=== PATIENT | female | born 1980 ===

== ENCOUNTER 2022-10-08 13:16 | Outpatient (AMB) | payer OTHER, SELFPAY ==
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
[2022-10-08 13:20] VITALS: BP 148/76; PULSE 79; O2SAT 98; BMI 35.9
== END 2022-10-08 13:55 | disposition home or self-care (01) ==
PROVIDERS: Visit Provider Internal Medicine
DX: J45.40 Moderate persistent asthma, uncomplicated (principal); E66.01 Morbid (severe) obesity due to excess calories; Z68.35 Body mass index [BMI] 35.0-35.9, adult; Z59.00 Homelessness unspecified; Z23 Encounter for immunization; F43.10 Post-traumatic stress disorder, unspecified; F33.2 Major depressive disorder, recurrent severe without psychotic features; Z76.89 Persons encountering health services in other specified circumstances; R03.0 Elevated blood-pressure reading, without diagnosis of hypertension; R10.13 Epigastric pain; Z28.39 Other underimmunization status
CPT/HCPCS: 90471; 90715; 99205

== ENCOUNTER 2022-12-01 09:16 | Outpatient (AMB) | payer OTHER, SELFPAY ==
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
[2022-12-01 09:25] VITALS: BP 132/74; BMI 35.9
== END 2022-12-01 10:15 | disposition home or self-care (01) ==
PROVIDERS: PCP Internal Medicine; Visit Provider Advanced Practice Midwife
DX: Z01.419 Encounter for gynecological examination (general) (routine) without abnormal findings (principal); Z87.42 Personal history of other diseases of the female genital tract; Z11.3 Encounter for screening for infections with a predominantly sexual mode of transmission; N89.8 Other specified noninflammatory disorders of vagina
CPT/HCPCS: 99386

== ENCOUNTER 2022-12-01 09:16 | Outpatient (REF) | payer OTHER, SELFPAY ==
[2022-12-01 14:35] LABS: CT PCR NOT DETECTED (Not Detect.); NG PCR NOT DETECTED (Not Detect.)
[2022-12-02 13:47] LABS: BV Int Neg Control Negative (Negative); BV Int Pos Control Positive (Positive)
[2022-12-03 22:48] LABS: HPV mRNA E6/E7 rflx Not Detected (Not Detected)
== END 2022-12-01 09:17 | disposition home or self-care (01) ==
LOC: HO.LNP 09:16
PROVIDERS: PCP Internal Medicine; Visit Provider Advanced Practice Midwife
DX: Z01.419 Encounter for gynecological examination (general) (routine) without abnormal findings (principal); Z11.51 Encounter for screening for human papillomavirus (HPV)
CPT/HCPCS: 0353U; 87480; 87510; 87624; 87660; 88142; 99386

== ENCOUNTER 2023-05-09 09:29 | Outpatient (AMB) | payer MEDICAID, SELFPAY ==
[2023-05-09 10:57] VITALS: BP 140/88; PULSE 96; TEMP 37; O2SAT 96; BMI 36.9
--- NOTE | 2023-05-09 10:57 | AM.OFFWIN_ITS ---
Intake Vital Signs 05/09/23 10:57 Height 5 ft 10 in Weight 257 lb 4 oz BMI 36.9 BP 140/88 H Blood Pressure Location Rt brachial Position Sitting Pulse 96 Pulse Source Pulse Oximeter Temp 98.6 F Temp Source Oral Pulse Oximetry (%) 96 Oxygen Delivery Method Room Air Intake Visit Reasons: EP Pain chest/Rib Intake Note: Pt presents to the office today for chest pain and rib pain. Pt states this has been going on for about a week.She states she went to [facility] on tuesday and tuesday due to the pain. She states the doctor told her it could be pneumonia but wasnt sure. The doctor also said there was some type of obstruction in the lungs as well . Pt states she is in a lot of pain in her back. Patient Tobacco Use Status: Never used Tobacco Allergies keaflex Allergy (Severe, Uncoded 05/09/23 11:44) Unresponsive mandy Allergy (Mild, Uncoded 05/09/23 11:44) Anaphylaxis Medication List - Last Reconciled 05/09/23 by Alek Boyce MD albuterol sulfate 90 mcg/actuation (ProAir HFA) 1 inh inhalation QID PRN 30 days doxycycline hyclate 100 mg PO BID dupilumab (Dupixent) 300 mg subcut Q2W omeprazole 20 mg PO DAILY HPI EP Pain chest/Rib HPI Details 42-year-old [facility]. Patient was seen in the emergency room, [facility] on May 07 and May 08. She is complaining of worsening and progressive worsening of back pain and chest discomfort in the past week. Pain on taking a deep breath. This morning she is complaining of discomfort when she is swallowing. Pain mostly in the lower back. In the 2 ER visits she had in the last 2 days, an ultrasound of the abdomen, CTA of the chest, abdomen and pelvis was done. Blood work was unremarkable. Patient has an upcoming appointment with her primary care in 2 days. [facility] Social History Housing: Other Patient Tobacco Use Status: Never used Tobacco e-Cigarette/Vaping Use: Never Used service: No Current occupational status: employed Cognitive needs: No Hearing needs: No Vision needs: No Physical Exam Vital Signs: Last Vital Signs Temp 98.6 F 05/09/23 10:57 Pulse 96 05/09/23 10:57 BP 140/88 H 05/09/23 10:57 Pulse Ox 96 05/09/23 10:57 Oxygen Delivery Method Room Air 05/09/23 10:57 BMI result Body Mass Index 36.9 Const Other: Patient is concerned and in mild distress about her condition. General: cooperative and healthy appearing Nutritional Appearance: well nourished Orientation/consciousness: patient oriented x3 Limitations: no limitations HEENT Head: Yes normal to inspection Eyes General: appearance normal, both eyes and all related structures Neck Neck: Yes normal visual inspection Chest Chest palpation & inspection: normal palpation of entire chest wall Resp Effort & Inspection: normal respiratory effort Back/Spine/Pelvis Other: Back: No spinal tenderness. No paraspinal spasm. Neuro General: patient oriented x3 Assessment & Plan Assessment & Plan (1) Back pain: Code(s): M54.9 - Dorsalgia, unspecified Plan I reviewed the ultrasound of the abdomen, CTA of the abdomen pelvis that was provided to the patient at discharge from the emergency room. She is on antibiotics has the CTA of the chest showed trace pleural effusion. I encouraged her to take Mylanta in addition to the omeprazole for her symptoms of the throat. She has not started the oxycodone that was prescribed at the ER. 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 Cyclobenzaprine was added to the regimen. 20 minutes was spent in reviewing the ER document. Coding Level of Care Code Est Pt Level 4 (74907) Diagnoses Back pain M54.9
== END 2023-05-09 14:44 | disposition home or self-care (01) ==
PROVIDERS: PCP Internal Medicine; Visit Provider Internal Medicine
DX: M54.9 Dorsalgia, unspecified (principal)
CPT/HCPCS: 99214

== ENCOUNTER 2023-05-13 14:41 | Outpatient (AMB) | payer OTHER, SELFPAY ==
[2023-05-13 14:45] VITALS: BP 140/96; PULSE 69; O2SAT 98; BMI 36.8
--- NOTE | 2023-05-13 14:45 | A.OFFPC_ITS ---
Vital Signs 3 05/13/23 14:45 Height 5 ft 10 in Weight 256 lb 4 oz BMI 36.8 BP 140/96 H Blood Pressure Location Rt brachial Position Sitting Pulse 69 Pulse Source Pulse Oximeter Pulse Oximetry (%) 98 Oxygen Delivery Method Room Air Intake Visit Reasons: discharge follow up Allergies keaflex Allergy (Severe, Uncoded 05/13/23 14:47) Unresponsive mandy Allergy (Mild, Uncoded 05/13/23 14:47) Anaphylaxis Medication List - Last Reconciled 05/13/23 by Chasity Larson MD albuterol sulfate 90 mcg/actuation (ProAir HFA) 1 inh inhalation QID PRN 30 days cyclobenzaprine 10 mg PO BEDTIME doxycycline hyclate 100 mg PO BID dupilumab (Dupixent) 300 mg subcut Q2W fluticasone propion-salmeterol 500-50 mcg/dose (Advair Diskus) inhalation BID omeprazole 20 mg PO DAILY Tobacco use date assessed: 05/13/23 Dental Screening Dental Screen Date: 05/13/23 HPI discharge follow up 2 HPI0 Details Patient is a 42-year-old female who was last seen by me end of last year for asthma and new patient visit, and did not come in for follow-up after that. Came in today for hospital discharge follow-up from [facility] Patient presented to emergency room with a chief complaint of right upper quadrant pain CTA done showed no aortic dissection mesenteric vessels are patent without evidence of end-organ hypoperfusion Ground-glass opacities in the lung bases may represent atelectasis or infectious etiology Labs were within normal limits Day before that patient went to [facility] with similar complaints and CT scan of abdomen was done I did not had those notes but patient had them CT scan report reviewed It shows dilatation of common bile duct to 10 mm and then tapering off to normal diameter Patient says that she tried to eat a little bit of pasta this morning and the pain got really worse At this time she is only tolerating clear liquids She is to continue with the liquids chicken broth is okay jello is okay I have placed referral to Gastroenterology for patient to be seen urgently For her lungs we will repeat chest x-ray in couple of weeks At this time patient does not have any fever or cough PFSH Social History Housing: Other Patient Tobacco Use Status: Never used Tobacco e-Cigarette/Vaping Use: Never Used service: No Current occupational status: employed Cognitive needs: No Hearing needs: No Vision needs: No Questionnaire Thrive Questionnaire Date Thrive assessed: 10/08/22 VALERY-7 AMB Questionnaire VALERY-7 Date VALERY - 7 assessed: 10/08/22 Source: Developed by Drs. Lyle Gant, Agnieszka Tong, Cristian Pettit and colleagues, with an educational romeo from [employer]. Review of Systems Const Denies chills and Denies fever(s) ENT Denies epistaxis and Denies nasal discharge Card Denies chest pain Resp Denies chest congestion, Denies cough and Denies hemoptysis GI Denies diarrhea and Denies nausea Skin/Breast Denies rash Neuro Reports no additional complaints Psych Reports no additional complaints Endo Reports no additional complaints Physical exam (Primary Care) Vital Signs: Last Vital Signs Pulse 69 05/13/23 14:45 BP 140/96 H 05/13/23 14:45 Pulse Ox 98 05/13/23 14:45 Oxygen Delivery Method Room Air 05/13/23 14:45 BMI result Body Mass Index 36.8 Tobacco/Smoking Status: Tobacco use Status Tobacco use date assessed 05/13/23 05/13/23 14:54 Patient Tobacco Use Status Never used Tobacco 05/13/23 14:54 e-Cigarette/Vaping Use Never Used 05/13/23 14:54 Thrive Assessment: Date of Thrive Assessment Date Thrive assessed 10/08/22 05/13/23 14:54 Const General: cooperative, comfortable and no acute distress Orientation/consciousness: patient oriented x3 HENMT Head: Yes normocephalic Eyes General: appearance normal, both eyes and all related structures Neck Neck: Yes supple Resp Effort & Inspection: normal respiratory effort, no cough and no stridor Cardio Rhythm: regular rhythm Heart sounds: S1 normal heart sound present and S2 normal heart sound present GI Abdomen image: 2 1. Pain with slight palpation Skin General skin exam: turgor normal Neuro General: patient oriented x3, tone normal and moves all extremities Extrem Right lower extremity: no edema Left lower extremity: no edema Assessment and Plan Assessment & Plan (1) Hospital discharge follow-up: Code(s): Z09 - Encounter for follow-up examination after completed treatment for conditions other than malignant neoplasm (2) Abnormal gall bladder diagnostic imaging: Code(s): R93.2 - Abnormal findings on diagnostic imaging of liver and biliary tract (3) Right upper quadrant pain: Code(s): R10.11 - Right upper quadrant pain (4) Opacity of lung on imaging study: Code(s): R91.8 - Other nonspecific abnormal finding of lung field Plan Patient is a 42-year-old female who was last seen by me end of last year for asthma and new patient visit, and did not come in for follow-up after that. Came in today for hospital discharge follow-up from [facility] Patient presented to emergency room with a chief complaint of right upper quadrant pain CTA done showed no aortic dissection mesenteric vessels are patent without evidence of end-organ hypoperfusion Ground-glass opacities in the lung bases may represent atelectasis or infectious etiology Labs were within normal limits Day before that patient went to [facility] with similar complaints and CT scan of abdomen was done I did not had those notes but patient had them CT scan report reviewed It shows dilatation of common bile duct to 10 mm and then tapering off to normal diameter Patient says that she tried to eat a little bit of pasta this morning and the pain got really worse At this time she is only tolerating clear liquids She is to continue with the liquids chicken broth is okay jello is okay I have placed referral to Gastroenterology for patient to be seen urgently For her lungs we will repeat chest x-ray in couple of weeks At this time patient does not have any fever or cough Orders: Orders 2 XR chest 2V Today R91.8 - Other nonspecific abnormal finding of lung field Referrals 2 Gastroenterology Referral R10.11 - Right upper quadrant pain, R93.2 - Abnormal findings on diagnostic imaging of liver and biliary tract Coding Level of Care Code Est Pt Level 4 (86233) Diagnoses Hospital discharge follow-up Z09 Abnormal gall bladder diagnostic imaging R93.2 Right upper quadrant pain R10.11 Opacity of lung on imaging study R91.8
== END 2023-05-13 15:25 | disposition home or self-care (01) ==
PROVIDERS: PCP Internal Medicine; Visit Provider Internal Medicine
DX: R93.2 Abnormal findings on diagnostic imaging of liver and biliary tract (principal); Z09 Encounter for follow-up examination after completed treatment for conditions other than malignant neoplasm; R10.11 Right upper quadrant pain; R91.8 Other nonspecific abnormal finding of lung field
CPT/HCPCS: 99214

== ENCOUNTER 2023-06-06 10:33 | Outpatient (REF) | payer OTHER, SELFPAY ==
[2023-06-06 11:47] LABS: MANUAL DIFF FLAG NO
[2023-06-06 11:58] LABS: Basophils Percent Auto 0.5 % (0-2); Eosinophils Absolute Auto 0.6 X10*3/uL (0.0-0.4); Eosinophils Percent Auto 6.9 % (0-4); Hematocrit 41.2 % (37.0-47.0); Hemoglobin 13.4 g/dl (12.0-16.0); Imm Gran Abs Auto 0.02 X10*3/uL (0.00-0.03); Imm Gran Pct Auto 0.3 % (0.0-0.4); Lymphocytes Absolute Auto 2.6 X10*3/uL (1.2-4.9); Lymphocytes Percent Auto 32.4 % (20-40); Mean Corpuscular HGB Conc 32.5 g/dl (31.0-35.0); Mean Corpuscular Hemoglobin 28.1 pg (27.0-33.0); Mean Corpuscular Volume 86.4 fL (80.0-98.0); Mean Platelet Volume 10.4 fL (9.4-12.3); Monocytes Absolute Auto 0.7 X10*3/uL (0.1-1.2); Monocytes Percent Auto 8.6 % (2-11); Neutrophils Absolute Auto 4.1 x10*3/uL (2.0-8.3); Neutrophils Percent Auto 51.3 % (45-73); Platelet Count 242 X10*3/uL (160-400); Red Blood Count 4.77 X10*6/uL (4.20-5.50); Red Cell Distribution Width 14.6 % (11.0-16.0); White Blood Count 7.9 X10*3/uL (4.8-10.8)
[2023-06-06 12:38] LABS: Alanine Aminotransferase 14 U/L (0-31); Albumin Level 4.2 g/dL (3.5-5.0); Alkaline Phosphatase 75 U/L (39-117); Anion Gap 12 (12-20); Aspartate Amino Transferase 15 U/L (5-31); Bilirubin Total 0.4 mg/dL (0.0-1.0); Blood Urea Nitrogen 9 mg/dL (9-16); Calcium 9.4 mg/dL (8.4-10.2); Carbon Dioxide 28 mmol/L (22-29); Chloride 103 mmol/L (96-108); Estimated Glomerular Filt Rate > 60; Glucose Random 99 mg/dL (60-115); Potassium 4.1 mmol/L (3.3-5.1); Sodium 139 mmol/L (135-145); Total Protein 8.1 g/dL (6.5-8.0)
== END 2023-06-06 10:34 | disposition home or self-care (01) ==
LOC: HO.LAB 10:33
PROVIDERS: PCP Internal Medicine; Visit Provider Physician Assistant
DX: Z09 Encounter for follow-up examination after completed treatment for conditions other than malignant neoplasm (principal); R10.11 Right upper quadrant pain; R93.2 Abnormal findings on diagnostic imaging of liver and biliary tract; K83.8 Other specified diseases of biliary tract
CPT/HCPCS: 36415; 80053; 85025; 99202

== ENCOUNTER 2023-06-06 10:34 | Outpatient (AMB) | payer OTHER, SELFPAY ==
--- NOTE | 2023-06-06 10:36 | MHC.OFFVIS ---
Vital Signs 06/06/23 10:40 Height 5 ft 10 in Weight 250 lb BMI 35.9 BP 132/74 Blood Pressure Location Lt brachial Position Sitting Pulse 72 Intake Visit Reasons: Ab findings of liver and biliary tract Intake Note: New consult for abnormal finding of liver and billary tract Patient cc: abdominal discomfort and bloating, some swallowing problems, constipation on and off, and burping a lot. 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 Accompanied by: Self / Same As Patient Allergies keaflex Allergy (Severe, Uncoded 05/13/23 14:47) Unresponsive mandy Allergy (Mild, Uncoded 05/13/23 14:47) Anaphylaxis Medication List - Last Reconciled 06/06/23 by Cori Staton PA-C albuterol sulfate 90 mcg/actuation (ProAir HFA) 1 inh inhalation QID PRN 30 days cyclobenzaprine 10 mg PO BEDTIME doxycycline hyclate 100 mg PO BID dupilumab (Dupixent) 300 mg subcut Q2W fluticasone propion-salmeterol 500-50 mcg/dose (Advair Diskus) inhalation BID omeprazole 20 mg PO DAILY HPI Comments Details: A 42 y/o female severe asthma- dupexiant with good response-referred after [facility] ED for RUQ pain-txd for pneumonia with antibx- RUQ discomfort-intermittent over the past couple years- she was given pills- she was seen previously at the ED- no dx Sent to GI urgently- she is unclear why Appetite fluctuates- unable to ID anything specific-omeprazole 20 mg- unclear if effective-has made dietary change- She has globus- is anxious- No nausea/ vomit- hematemesis, hematochezia fever or chills [facility] Social History (Updated 06/06/23 @ 11:19 by Cori Staton PA-C) Household Members Other:: 2 sons Housing: Other Patient Tobacco Use Status: Never used Tobacco e-Cigarette/Vaping Use: Never Used service: No Current occupational status: employed Cognitive needs: No Hearing needs: No Vision needs: No Review of Systems Const All systems reviewed & are unremarkable except as noted in HPI and below Card Denies chest pain and Denies dyspnea Resp Denies dyspnea GI Reports abdominal pain and Reports heartburn Physical Exam Vital Signs: Last Vital Signs Pulse 72 06/06/23 10:40 BP 132/74 06/06/23 10:40 BMI result Body Mass Index 35.9 Const General: cooperative, healthy appearing, comfortable and no acute distress Orientation/consciousness: patient oriented x3 Limitations: no limitations Eyes Sclerae: sclerae normal Resp Effort & Inspection: normal respiratory effort and able to speak in complete sentences Auscultation: clear to auscultation bilaterally, no rales, no rhonchi and no wheezes Cardio Rate: regular rate Rhythm: abnormal rhythm GI Palpation (GI): Soft to palpation and nontender Auscultation: normal bowel sounds Neuro General: patient oriented x3 Extrem General: Yes full ROM Psych Appearance: grossly normal and well kempt Mental Status: mental status grossly normal Speech and movement: Normal speech and movement present and Clear speech present Affect: normal affect Attitude: cooperative Thought process: Normal thought process present Thought content: Normal thought content present Insight: Good insight present (Psych) Judgement: Good judgement present (Psych) Results Reviewed Results Reviewed: Normal liver enzymes-[facility] Assessment & Plan Assessment & Plan (1) Hospital discharge follow-up: Comment: 2, ED visits, right upper quadrant-CT shows CBD 10 mm-normal liver enzymes-needs further Code(s): Z09 - Encounter for follow-up examination after completed treatment for conditions other than malignant neoplasm Category: Medical Plan: MRCP (2) Dilated cbd, acquired: Comment: MRCP labs Code(s): K83.8 - Other specified diseases of biliary tract Category: Medical (3) Right upper quadrant pain: Comment: intermittent- discomfort x 2 years Code(s): R10.11 - Right upper quadrant pain Category: Medical (4) Abnormal gall bladder diagnostic imaging: Comment: No stones, CBD 10 mm Code(s): R93.2 - Abnormal findings on diagnostic imaging of liver and biliary tract Category: Medical Plan Patient to check records for MRI question However will place order for MRCP- if neg get HIDA labs Orders: Orders MR MRCP 06/06/23 K83.8 - Other specified diseases of biliary tract, R10.11 - Right upper quadrant pain, R93.2 - Abnormal findings on diagnostic imaging of liver and biliary tract, Z09 - Encounter for follow-up examination after completed treatment for conditions other than malignant neoplasm Comprehensive Met. Panel 06/06/23 K83.8 - Other specified diseases of biliary tract, R10.11 - Right upper quadrant pain Complete Blood Count Auto Diff 06/06/23 K83.8 - Other specified diseases of biliary tract, R10.11 - Right upper quadrant pain, R93.2 - Abnormal findings on diagnostic imaging of liver and biliary tract Patient Instructions: MRCP if neg get HIDA labs Patient to check records for MRI question questions However will place order for MRCP- if neg get HIDA labs She will continue to monitor her sx Continue PPI Encouraged to call with any questions or concerns. Coding Level of Care Code New Pt Level 4 (16716) Diagnoses Hospital discharge follow-up Z09 Dilated cbd, acquired K83.8 Right upper quadrant pain R10.11 Abnormal gall bladder diagnostic imaging R93.2 Time Spent (min) 30 Comment disc-MD/prev-GI
[2023-06-06 10:40] VITALS: BP 132/74; PULSE 72; BMI 35.9
== END 2023-06-06 12:15 | disposition home or self-care (01) ==
PROVIDERS: PCP Internal Medicine; Visit Provider Physician Assistant
DX: Z09 Encounter for follow-up examination after completed treatment for conditions other than malignant neoplasm (principal); K83.8 Other specified diseases of biliary tract; R10.11 Right upper quadrant pain; R93.2 Abnormal findings on diagnostic imaging of liver and biliary tract
CPT/HCPCS: 99204

== ENCOUNTER 2023-06-22 13:06 | Outpatient (AMB) | payer OTHER, SELFPAY ==
[2023-06-22 13:11] VITALS: BP 150/88; PULSE 91; O2SAT 98; BMI 37.3
--- NOTE | 2023-06-22 13:11 | MHC.PC.OV ---
Vital Signs 06/22/23 13:11 Height 5 ft 10 in Weight 260 lb 4 oz BMI 37.3 BP 150/88 H Blood Pressure Location Lt brachial Position Sitting Pulse 91 Pulse Source Pulse Oximeter Pulse Oximetry (%) 98 Oxygen Delivery Method Room Air Intake Visit Reasons: Discuss weight loss ~ Allergies keaflex Allergy (Severe, Uncoded 05/13/23 14:47) Unresponsive mandy Allergy (Mild, Uncoded 05/13/23 14:47) Anaphylaxis Medication List - Last Reconciled 06/22/23 by Chasity Larson MD albuterol sulfate 90 mcg/actuation (ProAir HFA) 1 inh inhalation QID PRN 30 days cyclobenzaprine 10 mg PO BEDTIME dupilumab (Dupixent) 300 mg subcut Q2W fluticasone propion-salmeterol 500-50 mcg/dose (Advair Diskus) inhalation BID omeprazole 20 mg PO DAILY Tobacco use date assessed: 06/22/23 Dental Screening Dental Screen Date: 06/22/23 Did you have a dental visit in the last 12 months?: No Did you have a dental problem in the last 6 months where you did not have access to dental care?: No Was dental information given to patient?: No HPI Discuss weight loss ~ HPI Details Patient is a 43-year-old female came in today to talk about her weight Patient says that she has been working out and trying to watch what she is eating but still has no luck losing weight Patient was last seen secondary to right upper quadrant pain, she is under care of Gastroenterology and have MRI appointment coming up She says that she does not want to take any medication she is more interested in surgical treatment Her BMI is 37.3 patient is obese I have placed a referral for her to be evaluated by Bariatric surgery [facility] Social History Household Members Other:: 2 sons Housing: Other Patient Tobacco Use Status: Never used Tobacco e-Cigarette/Vaping Use: Never Used service: No Current occupational status: employed Cognitive needs: No Hearing needs: No Vision needs: No Questionnaire Thrive Questionnaire Date Thrive assessed: 10/08/22 AUDIT C Alcohol Use Questionnaire (AUDIT-C) 1. How often do you have a drink containing alcohol?: Never 3. How often do you have six or more drinks on one occasion?: Never Total Score: 0 Score Reviewed/Action Taken: Yes VALERY-7 AMB Questionnaire VALERY-7 Date VALERY - 7 assessed: 10/08/22 Source: Developed by Drs. Lyle Gant, Agnieszka Tong, Cristian Pettit and colleagues, with an educational romeo from [employer]. Review of Systems Const All systems reviewed & are unremarkable except as noted in HPI and below Physical exam (Primary Care) Vital Signs: Last Vital Signs Pulse 91 06/22/23 13:11 BP 150/88 H 06/22/23 13:11 Pulse Ox 98 06/22/23 13:11 Oxygen Delivery Method Room Air 06/22/23 13:11 BMI result Body Mass Index 37.3 Tobacco/Smoking Status: Tobacco use Status Tobacco use date assessed 06/22/23 06/22/23 13:15 Patient Tobacco Use Status Never used Tobacco 06/22/23 13:15 e-Cigarette/Vaping Use Never Used 06/22/23 13:15 Thrive Assessment: Date of Thrive Assessment Date Thrive assessed 10/08/22 06/22/23 13:15 Const General: no acute distress Orientation/consciousness: patient oriented x3 Eyes General: appearance normal, both eyes and all related structures Resp Effort & Inspection: normal respiratory effort and able to speak in complete sentences Neuro General: patient oriented x3 Psych Mental Status: mental status grossly normal Assessment and Plan Assessment & Plan (1) Obesity due to excess calories: Code(s): E66.09 - Other obesity due to excess calories Qualifiers: Body mass index: BMI 35.0-35.9 Obesity classification: adult class 2 (BMI 35 - 39.9) Serious obesity comorbidity presence: with serious comorbidity Qualified Code(s): E66.01 - Morbid (severe) obesity due to excess calories; Z68.35 - Body mass index [BMI] 35.0-35.9, adult Plan Patient is a 43-year-old female came in today to talk about her weight Patient says that she has been working out and trying to watch what she is eating but still has no luck losing weight Patient was last seen secondary to right upper quadrant pain, she is under care of Gastroenterology and have MRI appointment coming up She says that she does not want to take any medication she is more interested in surgical treatment Her BMI is 37.3 patient is obese I have placed a referral for her to be evaluated by Bariatric surgery [facility] Orders: Referrals Bariatric Surgery Referral E66.01 - Morbid (severe) obesity due to excess calories, Z68.35 - Body mass index [BMI] 35.0-35.9, adult Coding Level of Care Code Est Pt Level 3 (72331) Diagnoses Class 2 severe obesity due to excess calories with serious comorbidity and body mass index (BMI) of 35.0 to 35.9 in adult E66.01; Z68.35 Body mass index: BMI 35.0-35.9 Obesity classification: adult class 2 (BMI 35 - 39.9) Serious obesity comorbidity presence: with serious comorbidity
== END 2023-06-22 14:14 | disposition home or self-care (01) ==
LOC: HO.HMGC 13:06
PROVIDERS: PCP Internal Medicine; Visit Provider Internal Medicine
DX: E66.01 Morbid (severe) obesity due to excess calories (principal); Z68.35 Body mass index [BMI] 35.0-35.9, adult
CPT/HCPCS: 99213

== ENCOUNTER → 2023-06-28 09:11 | Outpatient (BNVA) | payer OTHER, SELFPAY | PROVIDERS: PCP Internal Medicine; Visit Provider Physician Assistant Surgical ==

== ENCOUNTER 2023-07-27 12:42 | Outpatient (AMB) | payer OTHER, SELFPAY ==
--- NOTE | 2023-07-27 12:47 | MHC.PC.OV ---
Vital Signs 07/27/23 12:49 Height 5 ft 9 in Weight 260 lb 2 oz BMI 38.4 BP 152/90 H Blood Pressure Location Lt brachial Position Sitting Pulse 97 Pulse Source Pulse Oximeter Pulse Oximetry (%) 98 Oxygen Delivery Method Room Air Intake Visit Reasons: Annual PE Allergies keaflex Allergy (Severe, Uncoded 06/28/23 11:13) Unresponsive mandy Allergy (Mild, Uncoded 06/28/23 11:13) Anaphylaxis Medication List - Last Reconciled 07/27/23 by Chasity Larson MD albuterol sulfate 90 mcg/actuation (ProAir HFA) 1 inh inhalation QID PRN 30 days cyclobenzaprine 10 mg PO BEDTIME dupilumab (Dupixent) 300 mg subcut Q2W fluticasone propion-salmeterol 500-50 mcg/dose (Advair Diskus) inhalation BID magnesium 200 mg PO DAILY montelukast (Singulair) 10 mg PO DAILY omeprazole 20 mg PO DAILY zafirlukast 20 mg PO BID Tobacco use date assessed: 07/27/23 Dental Screening Dental Screen Date: 07/27/23 Did you have a dental visit in the last 12 months?: No Did you have a dental problem in the last 6 months where you did not have access to dental care?: No Was dental information given to patient?: Patient has dentist HPI Annual PE HPI Details Patient is a 42-year-old female came in today for physical examination Her blood pressure is elevated again It is higher than before On June 27 it was 140/84 and today it is 152/90 I am starting her on atenolol 25 mg as her heart rate is also elevated Patient suffers from severe asthma and currently seeing allergy airways operations specialist and is taking Dupixent through them in [place] Her last dose was 1 week ago. OBGYN visit was December of last year She is also due for mammogram order placed Labs were done May of this year reviewed again. There is some confusion going on with bariatric surgery scheduling coordinator Patient was evaluated at [facility] before, and then she got another appointment in [facility] Patient says that the [facility] appointment provider told her that they only do medications there. I have told her to call the [facility] bariatric center for a follow-up appointment If there is a problem then let me know. Patient is not interested in medications she would like to have bariatric surgery. Follow-up 3 weeks for blood pressure. [facility] Social History Household Members Other:: 2 sons Housing: Other Patient Tobacco Use Status: Never used Tobacco e-Cigarette/Vaping Use: Never Used service: No Current occupational status: employed Cognitive needs: No Hearing needs: No Vision needs: No Questionnaire Thrive Questionnaire Date Thrive assessed: 10/08/22 AUDIT C Alcohol Use Questionnaire (AUDIT-C) 1. How often do you have a drink containing alcohol?: Never 3. How often do you have six or more drinks on one occasion?: Never Total Score: 0 Score Reviewed/Action Taken: Yes VALERY-7 AMB Questionnaire VALERY-7 Date VALERY - 7 assessed: 10/08/22 Source: Developed by Drs. Lyle Gant, Agnieszka Tong, Cristian Pettit and colleagues, with an educational romeo from [employer]. Review of Systems Const Denies chills, Denies fever(s) and Denies headache(s) Eyes Denies blurry vision ENT Denies headache(s), Denies nasal discharge, Denies nasal obstruction, Denies odynophagia and Denies sinus pain Card Denies chest pain at rest and Denies chest pain with activity Resp Denies cough and Denies hemoptysis GI Denies diarrhea, Denies odynophagia, Denies vomiting and Denies hematemesis Reports as per HPI Musc Denies abnormal gait Skin/Breast Reports as per HPI Neuro Denies Neuro-related abnormal movements, Denies Abnormal speech present, Denies abnormal gait, Denies headache(s) and Denies Sensory deficit (Neuro) Psych Denies mood swings and Denies paranoia Endo Reports as per HPI Yobani/Lymph Reports as per HPI Aller/Immun Reports as per HPI Physical exam (Primary Care) Vital Signs: Last Vital Signs Pulse 97 07/27/23 12:49 BP 152/90 H 07/27/23 12:49 Pulse Ox 98 07/27/23 12:49 Oxygen Delivery Method Room Air 07/27/23 12:49 BMI result Body Mass Index 38.4 Tobacco/Smoking Status: Tobacco use Status Tobacco use date assessed 07/27/23 07/27/23 12:52 Patient Tobacco Use Status Never used Tobacco 07/27/23 12:47 e-Cigarette/Vaping Use Never Used 07/27/23 12:47 Thrive Assessment: Date of Thrive Assessment Date Thrive assessed 10/08/22 07/27/23 12:47 Const General: cooperative, comfortable and no acute distress Orientation/consciousness: patient oriented x3 HENMT Head: Yes normocephalic and Yes atraumatic Eyes General: appearance normal, both eyes and all related structures Pupils: Equal, round and reactive pupils present EOM: EOMs intact bilaterally Neck Neck: Yes supple and No lymphadenopathy Thyroid: Thyroid normal Lymphatic: no lymphadenopathy noted Resp Effort & Inspection: normal respiratory effort and able to speak in complete sentences Auscultation: clear to auscultation bilaterally Cardio Heart sounds: S1 normal heart sound present and S2 normal heart sound present GI Palpation (GI): Soft to palpation and nontender Auscultation: normal bowel sounds General: Yes no CVA tenderness Back/Spine/Pelvis Back: no CVA tenderness Skin General skin exam: elasticity normal and turgor normal Neuro General: patient oriented x3 and gait normal Cranial nerves: Yes Equal, round and reactive pupils present Speech: No Abnormal speech present Sensory Exam: No Sensory deficit (Neuro) Coordination: tandem gait normal and Romberg test negative Extrem General: Yes normal exam except as noted and No edema Assessment and Plan Assessment & Plan (1) Encounter for general adult medical examination with abnormal findings: Code(s): Z00.01 - Encounter for general adult medical examination with abnormal findings (2) Hypertension, essential: Code(s): I10 - Essential (primary) hypertension (3) Asthma, severe persistent: Code(s): J45.50 - Severe persistent asthma, uncomplicated Qualifiers: Asthma complication type: uncomplicated Qualified Code(s): J45.50 - Severe persistent asthma, uncomplicated (4) Obesity due to excess calories: Code(s): E66.09 - Other obesity due to excess calories Qualifiers: Body mass index: BMI 35.0-35.9 Obesity classification: adult class 2 (BMI 35 - 39.9) Serious obesity comorbidity presence: with serious comorbidity Qualified Code(s): E66.01 - Morbid (severe) obesity due to excess calories; Z68.35 - Body mass index [BMI] 35.0-35.9, adult Plan Patient is a 42-year-old female came in today for physical examination Her blood pressure is elevated again It is higher than before On June 27 it was 140/84 and today it is 152/90 I am starting her on atenolol 25 mg as her heart rate is also elevated Patient suffers from severe asthma and currently seeing allergy airways operations specialist and is taking Dupixent through them in [place] Her last dose was 1 week ago. OBGYN visit was December of last year She is also due for mammogram order placed Labs were done May of this year reviewed again. There is some confusion going on with bariatric surgery scheduling coordinator Patient was evaluated at [facility] before, and then she got another appointment in [facility] Patient says that the [facility] appointment provider told her that they only do medications there. I have told her to call the [facility] bariatric [place] for a follow-up appointment If there is a problem then let me know. Patient is not interested in medications she would like to have bariatric surgery. Follow-up 3 weeks for blood pressure. Orders: Orders MM tomosynthesis screening BI Today Z12.31 - Encounter for screening mammogram for malignant neoplasm of breast Medications: New atenolol 25 mg PO DAILY 30 tabs 0RF [Blood pressure monitor] As directed 1 ea 0RF I10 - Essential (primary) hypertension Coding Level of Care Code Est Pt Level 3 (98729) Est Pt Prev Care 40-64y(48236) Diagnoses Encounter for general adult medical examination with abnormal findings Z00.01 Hypertension, essential I10 Severe persistent asthma without complication J45.50 Asthma complication type: uncomplicated Class 2 severe obesity due to excess calories with serious comorbidity and body mass index (BMI) of 35.0 to 35.9 in adult E66.01; Z68.35 Body mass index: BMI 35.0-35.9 Obesity classification: adult class 2 (BMI 35 - 39.9) Serious obesity comorbidity presence: with serious comorbidity
[2023-07-27 12:49] VITALS: BP 152/90; PULSE 97; O2SAT 98; BMI 38.4
== END 2023-07-27 13:18 | disposition home or self-care (01) ==
PROVIDERS: PCP Internal Medicine; Visit Provider Internal Medicine
DX: Z00.01 Encounter for general adult medical examination with abnormal findings (principal); I10 Essential (primary) hypertension; J45.50 Severe persistent asthma, uncomplicated; E66.01 Morbid (severe) obesity due to excess calories; Z68.35 Body mass index [BMI] 35.0-35.9, adult
CPT/HCPCS: 99213; 99396

== ENCOUNTER 2023-07-29 08:07 | Outpatient (REF) | payer OTHER, SELFPAY ==
--- NOTE | ~2023-07-29 | MR_ITS ---
EXAMINATION: MR ABDOMEN WITHOUT CONTRAST CLINICAL INFORMATION: 42-year-old female with history of back pain. Concern for disease of biliary tract. COMPARISON: None available. TECHNIQUE: MR imaging examination of the abdomen is performed on a high-field magnet using standard sequences without use of intravenous contrast. This examination includes use of heavily T2-weighted MRCP sequences. FINDINGS: LUNG BASES: Normal. No pulmonary consolidation or pleural effusion. HEPATOBILIARY: Mild hepatomegaly and diffuse hepatic steatosis. The estimated fat fraction liver is 8% (i.e., mild steatosis). No evidence of liver mass or intrahepatic ductal dilatation. Gallbladder is physiologically distended and has normal wall thickness. No evidence of cholelithiasis. The common duct measures 0.4 cm diameter and has normal smooth contour. No focal ductal stricture or choledocholithiasis. PANCREAS: Normal. No edema, pancreatic ductal dilatation or mass. SPLEEN: Normal. ADRENAL GLANDS: Normal. KIDNEYS: Kidneys are normal in size. No renal mass, hydronephrosis or perinephric edema. BOWEL AND PERITONEUM: Stomach is unremarkable. No dilated loops of bowel. No bowel wall thickening or mesenteric fat stranding. No abdominal free fluid. A 2 x 0.9 x 2 cm simple-appearing cystic focus projects just inferior to the left hemidiaphragm and this is of no appreciable clinical significance. VASCULATURE: Abdominal aorta is normal in caliber. LYMPH NODES: No pathologic sized lymph nodes in the abdomen. SKELETAL: The visualized lower thoracic and lumbar vertebra have normal height and alignment. There is degenerative loss of disc height, degenerative endplate signal change and osteophyte formation at L5-S1. MR/MR MRCP IMPRESSION: * Mild hepatomegaly and mild hepatic steatosis. * No evidence of cholelithiasis, choledocholithiasis or biliary tract obstruction.
== END 2023-07-29 08:08 | disposition home or self-care (01) ==
LOC: HO.MRI 08:07
PROVIDERS: PCP Internal Medicine; Visit Provider Physician Assistant
DX: K83.8 Other specified diseases of biliary tract (principal); R93.2 Abnormal findings on diagnostic imaging of liver and biliary tract; R10.11 Right upper quadrant pain
CPT/HCPCS: 74181

== ENCOUNTER 2023-08-01 08:05 | Outpatient (AMB) | payer OTHER, SELFPAY ==
--- NOTE | 2023-08-01 10:35 | A.OFFVIS_ITS ---
VS Expanded 08/01/23 10:53 Height 5 ft 9 in Weight 253 lb 6 oz BMI 37.4 Body Fat % 44.7 Body Fat Mass 113.4 Fat Free Mass 140.2 Visceral Fat Rating 12 Body Water % 39.5 Body Water Mass 100 Basal Metabolic Rate/Score 1,973 Intake Visit Reasons: [employer] BMI 37.5 Allergies keaflex Allergy (Severe, Uncoded 08/01/23 10:35) Unresponsive mandy Allergy (Mild, Uncoded 08/01/23 10:35) Anaphylaxis Medication List - Last Reconciled 08/01/23 by Mumtaz Francis MD albuterol sulfate 90 mcg/actuation (ProAir HFA) 1 inh inhalation QID PRN 30 days atenolol 25 mg PO DAILY [Blood pressure monitor As directed] cyclobenzaprine 10 mg PO BEDTIME dupilumab (Dupixent) 300 mg subcut Q2W fluticasone propion-salmeterol 500-50 mcg/dose (Advair Diskus) inhalation BID magnesium 200 mg PO DAILY montelukast (Singulair) 10 mg PO DAILY omeprazole 20 mg PO DAILY zafirlukast 20 mg PO BID HPI HPI [employer] BMI 37.5: Details: Start time: 10.30am, End time: 11.15am ?I spent 40 minutes speaking with the patient on the phone plus an additional 5 minutes reviewing and updating records for a total of 45 minutes HPI Comments Details: Previous weight loss efforts: Beach body weight loss, calorie counting Wakes up: 4am, Sleeps: 12am Breakfast: 7am (toast with avocado, eggs) Lunch: 12pm (rice, beans, meat, or sandwich) Dinner: 4pm (same as lunch) Snacks: 11.30am (berries, grapes), 9pm (Pretzels) Exercise: none Fluids: Fluids: none, tea: 2-3/wk (hot tea with honey), soda: none, juice: Av 2/wk, ETOH: none PFSH Medical History (Updated 08/01/23 @ 10:55 by Mumtaz Francis MD) Sleep apnea DJD (degenerative joint disease) GERD (gastroesophageal reflux disease) Obesity Social History Household Members Other:: 2 sons Housing: Other Patient Tobacco Use Status: Never used Tobacco e-Cigarette/Vaping Use: Never Used service: No Current occupational status: employed Cognitive needs: No Hearing needs: No Vision needs: No Telehealth Telehealth Telehealth Platform: Telephone Location of provider rendering services: practice address Location of patient: address on file Patient Identification confirmed using: Name, : Yes Telehealth method: voice only Patient verbally consented to treatment: Yes Patient verbally consented to billing insurance company: Yes Patient informed of any privacy concerns related to visit: Yes Minutes spent on Phone/Video with Pt.: 45 Assessment & Plan Assessment & Plan (1) Obesity: Code(s): E66.9 - Obesity, unspecified Category: Medical Qualifiers: Obesity type: due to excess calories Obesity classification: adult class 2 (BMI 35 - 39.9) Serious obesity comorbidity presence: with serious comorbidity Body mass index: BMI 37.0-37.9 Qualified Code(s): E66.01 - Morbid (severe) obesity due to excess calories; Z68.37 - Body mass index [BMI] 37.0- 37.9, adult Plan: 1.? Plan for lap sleeve gastrectomy. If diaphragmatic or ventral hernias are present at time of surgery, these will be repaired laparoscopically as well. Risks and complications include possible conversion to an open procedure, anastomotic leak, bleeding requiring transfusion, small bowel obstruction, , DVT and pulmonary embolism, cardiac, or pulmonary complications, as regional intermodal truck driver complications such as anastomotic ulcer, insufficient weight loss and vitamin deficiencies. I emphasized the importance of close follow-up, adherence to instructions and good communication. 2. You will receive a link of our software osiris to generate an individualized nutritional and exercise plan specific for you. Please send me a screenshot of the plans you will generate Meal to include lean meat (beef, fish, pork, turkey, chicken), or [place] yogurt, or egg whites, or beans with a salad with olive oil and fruits (berries, pears, apples, kiwi). Avoid salt, breads, potatoes, rice, pasta, desserts. ?3. If you choose shakes, each shake would be drunk slowly, like coffee in a period of 2 hours. ?4. If you choose bars, cut each bar in 4 pieces and eat each piece in 30min ?to make each bar last 2 hours. ?5. I emphasized the importance of measuring accurately the food portion and measure it when serving the food in plate ?6. The meal portions include a specific number of forks of meat and salad. You always eat the meat portion but you can replace up to half of salad/vegetables portion with rice, potatoes or pasta, or a fruit ?if you like. The less you do it the better weight loss will be. ?7. One full-size fork is what it can be scooped on the fork without falling aside and not what can be bit with the fork. Use regular forks like those you find in a typical restaurant. ?8.? Please send me weight measurements as soon as possible and then once a week. Always include your diet and exercise plan. 9. The best choice would be to purchase a stationary bike, elliptical or treadmill at home that can track calories. Let me know if you do so I can give you an exercise plan. ?10.?It is important of avoiding and for at least 18 months postoperatively and has been discussed at the infosession. ?11. Goal is to lose at least 1.5-2lbs per week ?12. Goal to lose 10% of your weight before surgery, which is about 25lbs. Ultimate weight goal: 228lbs before surgery 13. Please follow the diet plan exactly without any change. If you don't like something about the plan or you feel hungry you need to communicate with me so I can help you revise the plan. You should not change the plan yourself. 14. To be scheduled for EGD due to history of GERD. The possibility of biopsies was discussed. Patient needs to avoid use of NSAIDs and aspirin for 1 week prior to EGD. Risks of perforation and? bleeding was discussed with the patient. This will be an outpatient procedure with IV sedation. Orders: Orders Insulin Today E66.9 - Obesity, unspecified, G47.30 - Sleep apnea, unspecified, Z68.37 - Body mass index [BMI] 37.0-37.9, adult Hemoglobin A1c Today E66.9 - Obesity, unspecified, G47.30 - Sleep apnea, unspecified, Z68.37 - Body mass index [BMI] 37.0-37.9, adult IRON PROFILE Today E66.9 - Obesity, unspecified, G47.30 - Sleep apnea, unspecified, Z68.37 - Body mass index [BMI] 37.0-37.9, adult Vitamin B12 and Folate Today E66.9 - Obesity, unspecified, G47.30 - Sleep apnea, unspecified, Z68.37 - Body mass index [BMI] 37.0-37.9, adult TSH reflex Free T4 Today E66.9 - Obesity, unspecified, G47.30 - Sleep apnea, unspecified, Z68.37 - Body mass index [BMI] 37.0-37.9, adult Vitamin D 25-OH Total Today E66.9 - Obesity, unspecified, G47.30 - Sleep apnea, unspecified, Z68.37 - Body mass index [BMI] 37.0-37.9, adult US abdomen comp w elastography Today E66.9 - Obesity, unspecified, G47.30 - Sleep apnea, unspecified, Z68.37 - Body mass index [BMI] 37.0-37.9, adult XR chest 2V Today E66.9 - Obesity, unspecified, G47.30 - Sleep apnea, unspecified, Z68.37 - Body mass index [BMI] 37.0-37.9, adult H Pylori Breath Test Today E66.9 - Obesity, unspecified, G47.30 - Sleep apnea, unspecified, Z68.37 - Body mass index [BMI] 37.0-37.9, adult Complete Blood Count Auto Diff Today E66.9 - Obesity, unspecified, G47.30 - Sleep apnea, unspecified, Z68.37 - Body mass index [BMI] 37.0-37.9, adult Lipid Panel Today E66.9 - Obesity, unspecified, G47.30 - Sleep apnea, unspecified, Z68.37 - Body mass index [BMI] 37.0-37.9, adult Comprehensive Met. Panel Today E66.9 - Obesity, unspecified, G47.30 - Sleep apnea, unspecified, Z68.37 - Body mass index [BMI] 37.0-37.9, adult Zinc Today E66.9 - Obesity, unspecified, G47.30 - Sleep apnea, unspecified, Z68.37 - Body mass index [BMI] 37.0-37.9, adult C Reactive Protein Today E66.9 - Obesity, unspecified, G47.30 - Sleep apnea, unspecified, Z68.37 - Body mass index [BMI] 37.0-37.9, adult Vitamin B1 Today E66.9 - Obesity, unspecified, G47.30 - Sleep apnea, unspecified, Z68.37 - Body mass index [BMI] 37.0-37.9, adult Vitamin A Today E66.9 - Obesity, unspecified, G47.30 - Sleep apnea, unspecified, Z68.37 - Body mass index [BMI] 37.0-37.9, adult Ferritin Today E66.9 - Obesity, unspecified, G47.30 - Sleep apnea, unspecified, Z68.37 - Body mass index [BMI] 37.0-37.9, adult ECG 12 lead EKG Today E66.9 - Obesity, unspecified, G47.30 - Sleep apnea, unspecified, Z68.37 - Body mass index [BMI] 37.0-37.9, adult FL upper GI w air Today E66.9 - Obesity, unspecified, G47.30 - Sleep apnea, u nspecified, Z68.37 - Body mass index [BMI] 37.0-37.9, adult Referrals Behavioral Health Referral E66.9 - Obesity, unspecified, G47.30 - Sleep apnea, unspecified, Z68.37 - Body mass index [BMI] 37.0-37.9, adult Nutrition/Dietitian Referral E66.9 - Obesity, unspecified, G47.30 - Sleep apnea, unspecified, Z68.37 - Body mass index [BMI] 37.0-37.9, adult
[2023-08-01 10:53] VITALS: BMI 37.4
== END 2023-08-01 11:16 | disposition home or self-care (01) ==
LOC: HO.HBS 08:05
PROVIDERS: PCP Internal Medicine; Visit Provider Surgery
DX: E66.01 Morbid (severe) obesity due to excess calories (principal); Z68.37 Body mass index [BMI] 37.0-37.9, adult
CPT/HCPCS: 99204

== ENCOUNTER → 2023-08-01 08:05 | Outpatient (BNVA) | payer OTHER, SELFPAY | PROVIDERS: PCP Internal Medicine; Visit Provider Surgery ==

== ENCOUNTER 2023-08-08 09:26 | Outpatient (REF) | payer OTHER, SELFPAY ==
--- NOTE | ~2023-08-08 | MM_ITS ---
EXAMINATION: MM SCREENING DIGITAL BREAST TOMOSYNTHESIS, BILATERAL CLINICAL INFORMATION: Screening. Asymptomatic. COMPARISON: Mammography: This is a baseline mammogram. TECHNIQUE: Digital breast tomosynthesis is performed in both the craniocaudal and mediolateral oblique views along with computer-aided detection (CAD). Synthesized 2D images are generated from the tomosynthesis. FINDINGS: There are scattered areas of fibroglandular density (ACR BI-RADS breast composition Category b). There are no significant masses, abnormal calcifications, or other abnormalities. MM/MM tomosynthesis screening BI IMPRESSION: No mammographic evidence of malignancy. ASSESSMENT: BI-RADS BI-RADS 1 - Negative RECOMMENDATION: Routine annual mammography screening. 1 year F/U This examination should not preclude the clinical evaluation of a suspicious palpable abnormality. This patient's information was entered into a reminder system with a target due date for their next mammogram.
--- NOTE | ~2023-08-08 | XR_ITS ---
EXAMINATION: XR CHEST CLINICAL INFORMATION: Obesity. COMPARISON: None available. TECHNIQUE: Frontal and lateral views of the chest were obtained. FINDINGS: The heart, great vessels, pulmonary vasculature and mediastinum are normal. The lungs show no focal infiltrate, effusion or pneumothorax. There is no acute osseous abnormality. XR/XR chest 2V IMPRESSION: No active cardiopulmonary disease.
--- NOTE | 2023-08-08 10:08 | ECG_ITS ---
Test Reason : preop Blood Pressure : / mmHG Vent. Rate : 078 BPM Atrial Rate : 078 BPM P-R Int : 136 ms QRS Dur : 100 ms QT Int : 390 ms P-R-T Axes : 042 002 030 degrees QTc Int : 444 ms Sinus rhythm with sinus arrhythmia with occasional Premature ventricular complexes Possible Left atrial enlargement Left ventricular hypertrophy ( R in aVL , [place] product ) Nonspecific ST abnormality Abnormal ECG No previous ECGs available Referred By: Mumtaz Francis Electronically Signed By:BRIAN MENDOZA MD
[2023-08-08 10:48] LABS: MANUAL DIFF FLAG NO
[2023-08-08 11:02] LABS: Basophils Percent Auto 0.4 % (0-2); Eosinophils Absolute Auto 0.2 X10*3/uL (0.0-0.4); Hematocrit 37.6 % (37.0-47.0); Hemoglobin 12.4 g/dl (12.0-16.0); Imm Gran Abs Auto 0.02 X10*3/uL (0.00-0.03); Imm Gran Pct Auto 0.3 % (0.0-0.4); Lymphocytes Absolute Auto 1.9 X10*3/uL (1.2-4.9); Lymphocytes Percent Auto 28.1 % (20-40); Mean Corpuscular Hemoglobin 27.9 pg (27.0-33.0); Mean Corpuscular Volume 84.5 fL (80.0-98.0); Mean Platelet Volume 10.2 fL (9.4-12.3); Monocytes Absolute Auto 0.5 X10*3/uL (0.1-1.2); Monocytes Percent Auto 6.8 % (2-11); Neutrophils Absolute Auto 4.2 x10*3/uL (2.0-8.3); Neutrophils Percent Auto 61.4 % (45-73); Platelet Count 278 X10*3/uL (160-400); Red Blood Count 4.45 X10*6/uL (4.20-5.50); Red Cell Distribution Width 15.2 % (11.0-16.0); White Blood Count 6.8 X10*3/uL (4.8-10.8)
[2023-08-08 11:17] LABS: Estimated Average Glucose 114 mg/dL; Hemoglobin A1c % 5.6 % (<6.0)
[2023-08-08 11:46] LABS: Alanine Aminotransferase 12 U/L (0-31); Albumin Level 4.2 g/dL (3.5-5.0); Alkaline Phosphatase 79 U/L (39-117); Anion Gap 15 (12-20); Aspartate Amino Transferase 14 U/L (5-31); Bilirubin Total 0.5 mg/dL (0.0-1.0); Blood Urea Nitrogen 13 mg/dL (9-16); C Reactive Protein 0.38 mg/dL (< or = 0.50); Calcium 9.1 mg/dL (8.4-10.2); Carbon Dioxide 25 mmol/L (22-29); Chloride 105 mmol/L (96-108); Cholesterol 182 mg/dL (<200); Estimated Glomerular Filt Rate > 60; Glucose Random 103 mg/dL (60-115); HDL Cholesterol 47 mg/dL (>40); Iron 39 mcg/dL (30-160); LDL Cholesterol Calculated 117 mg/dL (<100); Percent Iron Saturation 13 % (15-50); Potassium 3.8 mmol/L (3.3-5.1); Sodium 141 mmol/L (135-145); Total Iron Binding Capacity 312 mcg/dL (228-428); Total Protein 7.9 g/dL (6.5-8.0); Triglycerides 93 mg/dL (<150); Unsaturated Iron Binding 273 ug/dL
[2023-08-08 12:09] LABS: Ferritin 20 ng/mL (10-250); TSH reflex Free T4 3.02 uIU/mL (0.32-4.0); Vitamin B12 485 pg/mL (200-900); Vitamin D 25-OH Total 22.3 ng/mL (>30)
[2023-08-08 12:34] LABS: Insulin 21 uU/mL (2-29)
[2023-08-11 08:56] LABS: Zinc 66 mcg/dL (60-130)
[2023-08-12 20:03] LABS: Vitamin A 55 mcg/dL (38-98)
[2023-08-14 14:34] LABS: Vitamin B1 15 nmol/L (8-30)
== END 2023-08-08 09:27 | disposition home or self-care (01) ==
LOC: HO.MAMMO 09:26
PROVIDERS: Absent Provider Surgery; PCP Internal Medicine; Visit Provider Internal Medicine
DX: Z12.31 Encounter for screening mammogram for malignant neoplasm of breast (principal); E66.9 Obesity, unspecified; Z68.37 Body mass index [BMI] 37.0-37.9, adult; G47.30 Sleep apnea, unspecified
CPT/HCPCS: 36415; 71046; 77063; 77067; 80053; 80061; 82306; 82607; 82728; 82746; 83036; 83525; 83540; 84425; 84443; 84590; 84630; 85025; 86140; 93005

== ENCOUNTER → 2023-08-08 09:30 | Outpatient (BNV) | payer OTHER, SELFPAY | PROVIDERS: Absent Provider Surgery; PCP Internal Medicine; Visit Provider Radiology Diagnostic Radiology | DX: Z12.31 Encounter for screening mammogram for malignant neoplasm of breast (principal) | CPT/HCPCS: 77063; 77067 ==

== ENCOUNTER → 2023-08-08 10:08 | Outpatient (BNV) | payer OTHER, SELFPAY | PROVIDERS: Absent Provider Surgery; PCP Internal Medicine; Visit Provider Internal Medicine Cardiovascular Disease | DX: R94.31 Abnormal electrocardiogram [ECG] [EKG] (principal) | CPT/HCPCS: 93010 ==

== ENCOUNTER 2023-08-17 09:04 | Outpatient (AMB) | payer OTHER, SELFPAY ==
--- NOTE | 2023-08-17 09:07 | MHC.PC.OV ---
Vital Signs 08/17/23 09:08 Height 5 ft 9 in Weight 254 lb 4 oz BMI 37.5 BP 140/86 H Blood Pressure Location Rt brachial Position Sitting Pulse 51 Pulse Source Pulse Oximeter Pulse Oximetry (%) 98 Oxygen Delivery Method Room Air Intake Visit Reasons: 3 week follow up Allergies keaflex Allergy (Severe, Uncoded 08/01/23 10:35) Unresponsive mandy Allergy (Mild, Uncoded 08/01/23 10:35) Anaphylaxis Medication List - Last Reconciled 08/17/23 by Chasity Larson MD albuterol sulfate 90 mcg/actuation (ProAir HFA) 1 inh inhalation QID PRN 30 days atenolol 25 mg PO DAILY [Blood pressure monitor As directed] dupilumab (Dupixent) 300 mg subcut Q2W fluticasone propion-salmeterol 500-50 mcg/dose (Advair Diskus) inhalation BID magnesium 200 mg PO DAILY montelukast (Singulair) 10 mg PO DAILY omeprazole 20 mg PO DAILY zafirlukast 20 mg PO BID Tobacco use date assessed: 08/17/23 Dental Screening Dental Screen Date: 08/17/23 Did you have a dental visit in the last 12 months?: No Did you have a dental problem in the last 6 months where you did not have access to dental care?: No Was dental information given to patient?: Patient has dentist HPI 3 week follow up HPI Details Follow-up on Blood pressure Patient was started on atenolol 25 mg 3 weeks ago Patient says that she is feeling much better, she used to feel very tired but now she has more energy Blood pressure is running around 130s at home No side effects She is now going to weight loss program [facility] Vitamin-D level came back low on recent labs, she is to start supplement She will return in 6 months for follow-up. PENDING SALE TO [facility] Medical History Sleep apnea DJD (degenerative joint disease) GERD (gastroesophageal reflux disease) Obesity Social History Household Members Other:: 2 sons Housing: Other Patient Tobacco Use Status: Never used Tobacco e-Cigarette/Vaping Use: Never Used service: No Current occupational status: employed Cognitive needs: No Hearing needs: No Vision needs: No Questionnaire PHQ-9 Over the last 2 weeks, how often have you been bothered by any of the following problems? 1. Little interest or pleasure in doing things: nearly every day 2. Feeling down, depressed, or hopeless: more than half the days 3. Trouble falling or staying asleep, or sleeping too much: more than half the days 4. Feeling tired or having little energy: more than half the days 5. Poor appetite or overeating: nearly every day 6. Feeling bad about yourself - or that you are a failure or have let yourself or your family down: several days 7. Trouble concentrating on things, such as reading the newspaper or watching television: nearly every day 8. Moving or speaking so slowly that other people could have noticed. Or the opposite - being so fidgety or restless that you have been moving around a lot more than usual: more than half the days 9. Thoughts that you would be better off or of hurting yourself in some way: not at all Total score: 18 Depression Screening Interpretation: Positive Depression Screening Follow-up: Community Mental Health Worker F/U Depression Screening Done: Yes 03311 - PHQ-9 Billing: Yes Source: Developed by Drs. Lyle Gant, Agnieszka Tong, Cristian Pettit and colleagues, with an educational romeo from [employer]. Thrive Questionnaire Date Thrive assessed: 08/17/23 I am a: Patient What is your living situation today?: I have a steady place to live Within the past 12 months, did the food you bought not last and you didn't have the money to get more?: Never true THRIVE Score: 0 AUDIT C Alcohol Use Questionnaire (AUDIT-C) 1. How often do you have a drink containing alcohol?: Never 3. How often do you have six or more drinks on one occasion?: Never Total Score: 0 Score Reviewed/Action Taken: Yes VALERY-7 AMB Questionnaire VALERY-7 Date VALERY - 7 assessed: 08/17/23 Feeling nervous, anxious, or on edge: 0 = Not at all Not being able to stop or control worryin = Not at all Worrying too much about different things: 0 = Not at all Trouble relaxin = Not at all Being so restless that it is hard to sit still: 0 = Not at all Becoming easily annoyed or irritable: 0 = Not at all Feeling afraid as if something awful might happen: 0 = Not at all Total VALERY-7 score (0-4 normal; 5-9 mild; 10-14 moderate; 15-21 severe): 0 Source: Developed by Drs. Lyle Gant, Agnieszka Tong, Cristian Pettit and colleagues, with an educational romeo from [employer]. VALERY-7 Assessment Billing VALERY-7 Assessment Tool: VALERY-7 Assessment 20736 Review of Systems Const Denies chills and Denies fever(s) ENT Denies epistaxis and Denies nasal discharge Card Denies chest pain Resp Denies chest congestion, Denies cough and Denies hemoptysis GI Denies diarrhea and Denies nausea Skin/Breast Denies rash Neuro Reports no additional complaints Psych Reports no additional complaints Endo Reports no additional complaints Physical exam (Primary Care) Vital Signs: Last Vital Signs Pulse 51 08/17/23 09:08 BP 140/86 H 08/17/23 09:08 Pulse Ox 98 08/17/23 09:08 Oxygen Delivery Method Room Air 08/17/23 09:08 BMI result Body Mass Index 37.5 Tobacco/Smoking Status: Tobacco use Status Tobacco use date assessed 08/17/23 08/17/23 09:11 Patient Tobacco Use Status Never used Tobacco 08/17/23 09:11 e-Cigarette/Vaping Use Never Used 08/17/23 09:11 PHQ-9: PHQ-9 Score PHQ-9: Total score 18 08/17/23 09:28 Depression Screening Interpretation: Positive Depression Screening Follow-up: Community Mental Health Worker F/U Thrive Assessment: Date of Thrive Assessment Date Thrive assessed 08/17/23 08/17/23 09:28 Const General: cooperative, comfortable and no acute distress Orientation/consciousness: patient oriented x3 HENMT Head: Yes normocephalic Eyes General: appearance normal, both eyes and all related structures Neck Neck: Yes supple Resp Effort & Inspection: normal respiratory effort, no cough and no stridor Cardio Rhythm: regular rhythm Heart sounds: S1 normal heart sound present and S2 normal heart sound present Skin General skin exam: turgor normal Neuro General: patient oriented x3, tone normal and moves all extremities Extrem Right lower extremity: no edema Left lower extremity: no edema Assessment and Plan Assessment & Plan (1) Hypertension, essential: Code(s): I10 - Essential (primary) hypertension (2) Vitamin D deficiency: Code(s): E55.9 - Vitamin D deficiency, unspecified (3) PTSD (post-traumatic stress disorder): Code(s): F43.10 - Post-traumatic stress disorder, unspecified (4) Major depression, recurrent: Code(s): F33.9 - Major depressive disorder, recurrent, unspecified Qualifiers: Active/Remission status: currently active Major depression episode severity: moderate Qualified Code(s): F33.1 - Major depressive disorder, recurrent, moderate Plan Follow-up on Blood pressure Patient was started on atenolol 25 mg 3 weeks ago Patient says that she is feeling much better, she used to feel very tired but now she has more energy Blood pressure is running around 130s at home No side effects She is now going to weight loss program [facility] Vitamin-D level came back low on recent labs, she is to start supplement Depression screening positive patient also suffers from PTSD Message sent to our behavior health coordinator Patient should see a psychiatrist and a therapist. She will return in 6 months for follow-up. Medications: Refilled atenolol 25 mg PO DAILY 90 tabs 1RF Coding Level of Care Code Est Pt Level 4 (55486) Diagnoses Hypertension, essential I10 Vitamin D deficiency E55.9 PTSD (post-traumatic stress disorder) F43.10 Moderate episode of recurrent major depressive disorder F33.1 Active/Remission status: currently active Major depression episode severity: moderate Additional Codes VALERY-7 Assessment Billing - VALERY-7 Assessment Tool: VALERY-7 Assessment [id number] ([id number])
[2023-08-17 09:08] VITALS: BP 140/86; PULSE 51; O2SAT 98; BMI 37.5
== END 2023-08-17 09:23 | disposition home or self-care (01) ==
PROVIDERS: PCP Internal Medicine; Visit Provider Internal Medicine
DX: I10 Essential (primary) hypertension (principal); E55.9 Vitamin D deficiency, unspecified; F43.10 Post-traumatic stress disorder, unspecified; F33.1 Major depressive disorder, recurrent, moderate
CPT/HCPCS: 96127; 99214

== ENCOUNTER 2023-08-17 10:36 | Outpatient (AMB) | payer OTHER, SELFPAY ==
--- NOTE | 2023-08-17 10:03 | MHC.WMTHER ---
Intake Intake Visit Reasons: TV BH Intake Allergies keaflex Allergy (Severe, Uncoded 08/01/23 10:35) Unresponsive mandy Allergy (Mild, Uncoded 08/01/23 10:35) Anaphylaxis [facility] Medical History Sleep apnea DJD (degenerative joint disease) GERD (gastroesophageal reflux disease) Obesity Social History Household Members Other:: 2 sons Housing: Other Patient Tobacco Use Status: Never used Tobacco e-Cigarette/Vaping Use: Never Used service: No Current occupational status: employed Cognitive needs: No Hearing needs: No Vision needs: No Behavioral Health Assessment Weight Management Therapy Therapy Notes Details Patient is looking to have weight loss surgery to help improve her health and quality of life. Pt is currently not in therapy however stated that she tried it in the past. No history of inpatient psychiatric admissions, no history of problems with drugs or alcohol. no hx of smoking, believes she may have COPD due to being in the area when 10/25 happened. Presenting Concerns Referral Source provider Reason for referral weight loss surgery evaluation Precipitating Event obesity Living Situation Current Living Situation Rent At risk of losing current housing? No Satisfied with current living situation? Yes Comments Pt is a single mom and lives with her 14 year old and 10 year old children. One of her children is disabled. Food/Weight/Diet Expectations of change weight loss and maintenance History/Relationship with food Pt stated that she often times emotional eats, has a sweet tooth, feels sugar is very addictive to her. Sometimes skip meals, over eat. Latin meals, rice, beans, plaintains, meat, bread. Occasionally fast food, also madi steve. History/Relationship with weight She is currently at her heaviest weight. Pt stated that about ten years ago she started to really struggle with her weight. History/Relationship with dieting Beach body Binge Eating Do you frequently eat large amounts of food in short periods of time, not feeling physically hungry? No Do you feel out of control when you eat a large amount of food in a short period of time? No Do you eat large amounts of food rapidly and typically alone? Yes Night Eating Do you wake up at least once during the night to eat? No If you wake up in the night, do you find that it is necessary to eat something in order to fall back asleep? No Do you have little or no appetite in the morning and feel very hungry in the evening, often overeating between dinner and when you go to bed? No Social History Family history and relationship Patient reported that she was born and raised in [place], [place] by her mother and 4 siblings. She is and has two children. 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 Developmental history and status none Social support patient mentioned having supportive family members and friends which has helped her when time have been tough. Community support [place] [employer] Worship/Spirituality none Cultural/Ethnic information Legal Involvement and History Current or historical involvement with the legal system? none Education Highest grade completed some college Preferred learning style Auditory, Verbal, Written, Learn by doing and Visual Currently enrolled in educational program? No Interested in further educational program? No Educational Interests/Skills Currently works in [employer]. Employment Employment Status [employer] Wants help to find employment? Yes Meaningful activities spending time with her family, children's activities, walking Financial Situation Describe current financial situation Occasional struggle Financial assistance? Food [place] and Other ([employer], uses food pantry ) Service Service? No Mental Health and Addiction Treatment Current/Past substance abuse? No Current/Past addictive behavior concerns? No Medical and Physical Health Summary Physical exam in the last year? Yes Pain Screening Current pain? No Pain in the last few months? No Medications Is the patient compliant with medications? Yes Does the patient have [place] Guardian in place? Not applicable Does the patient use complimentary health approaches? No Trauma/Abuse History History of trauma? Yes Questionnaires PHQ-9 Over the last 2 weeks, how often have you been bothered by any of the following problems? 1. Little interest or pleasure in doing things: nearly every day 2. Feeling down, depressed, or hopeless: more than half the days 3. Trouble falling or staying asleep, or sleeping too much: nearly every day 4. Feeling tired or having little energy: nearly every day 5. Poor appetite or overeating: nearly every day 6. Feeling bad about yourself - or that you are a failure or have let yourself or your family down: nearly every day 7. Trouble concentrating on things, such as reading the newspaper or watching television: nearly every day 8. Moving or speaking so slowly that other people could have noticed. Or the opposite - being so fidgety or restless that you have been moving around a lot more than usual: nearly every day 9. Thoughts that you would be better off or of hurting yourself in some way: not at all Total score: 23 Source: Developed by Drs. Lyle Gant, Agnieszka Tong, Cristian Pettit and colleagues, with an educational romeo from [employer]. Binge Eating Scale Group 1 A. I don't feel self-conscious about my wt. or body size when I'm with others. B. I feel concerned about how I look to others, but it normally does not make me fell disappointed with myself C. I do get self-conscious about my appearance and wt. which makes me feel disappointed in myself. D. I feel very self-conscious about my wt. and frequently I feel intense shame and disgust for myself. I try to avoid social contacts because of my self-consciousness. Response Group 1: B Group 2 A. I don't have any difficulty eating slowly in the proper manner. B. Although I seem to gobble down foods, I don't end up feeling stuffed because of eating to much. C. At times, I tend to eat quickly and then, I feel uncomfortably full afterwards. D. I have the habit of bolting down my food, without really chewing it. When this happens I usually feel uncomfortably stuffed because I've eaten to much. Response Group 2: B Group 3 A. I feel capable to control my eating urges when I want to. B. I feel like I have failed to control my eating more than the average person. C. I feel utterly helpless when it comes to feeling in control of my eating urges. D. Because I feel so helpless about controlling my eating I have become very desperate about trying to get control. Response Group 3: B Group 4 A. I don't have the habit of eating when I'm bored. B. I sometimes eat when I'm bored, but often I'm able to get busy and get my mind off food. C. I have a regular habit of eating when I'm bored, but occasionally, I can use some other activity to get my mind off eating. D. I have a strong habit of eating when I'm bored. Nothing seems to help me breath the habit. Response Group 4: D Group 5 A. I'm usually physically hungry when I eat something. B. Occasionally, I eat something on impulse even though I really am not hungry. C. I have the regular habit of eating foods, that I might not really enjoy, to satisfy a hungry feeling even though physically, I don't need the food. D. Although I'm not physically hungry, I get a hungry feeling in my mouth that only seems to be satisfied when I eat a food, like sandwich, that fills my mouth. Sometimes, when I eat the food to satisfy my mouth hunger, I then spit the food out so I won't gain weight. Response Group 5: B Group 6 A. I don't feel any guilt or self-hate after I overeat. B. After I overeat, occasionally I feel guilt or self-hate. C. Almost all the time I experience strong guilt or self-hate after I overeat. Response Group 6: A Group 7 A. I don't lose total control of my eating when dieting even after periods when I overeat. B. Sometimes when I eat a forbidden food on a diet, I feel like I blew it and eat even more. C. Frequently, I have the habit of saying to myself, I've blown it now, why not go all the way, when I overeat on a diet. When that happens I eat more. D. I have a regular habit of starting a strict diets for myself but I break the diets by going on an eating binge. My life seems to be either a feast or famine. Response Group 7: B Group 8 A. I rarely eat so much food that I feel uncomfortably stuffed afterwards. B. Usually about once a month, I each such a quantity of food, I end up feeling very stuffed. C. I have regular periods during the month when I eat large amounts of food, either at mealtime or at snacks. D. I eat so much food that I regularly feel quite uncomfortable after eating and sometimes a bit nauseous. Response Group 8: B Group 9 A. My level of calorie intake does not go up very high or go down very low on a regular basis. B. Sometimes after I overeat, I will try to reduce my caloric intake to almost nothing to compensate for the excess calories I've eaten. C. I have a regular habit of overeating during the night. It seems that my routine is not to be hungry in the morning but overeat in the evening. D. In my adult years, I have had week-long periods where I practically starve myself. This follows periods when I overeat. It seems I live a life of either feast or famine. Response Group 9: B Group 10 A. I usually am able to stop eating when I want to. I know when enough is enough. B. Every so often, I experience a compulsion to eat which I can't seem to control. C. Frequently, I experience strong urges to eat which I seem unable to control, but at other times I can control my eating urges. D. I feel incapable of controlling urges to eat. I have a fear of not being able to stop eating voluntarily. Response Group 10: B Group 11 A. I don't have any problem stopping eating when I feel full. B. I usually can stop eating when I feel full but occasionally overeat leaving me feeling uncomfortably stuffed. C. I have a problem stopping eating once I start and usually I feel uncomfortably stuffed after I eat a meal. D. Because I have a problem not being able to stop eating when I want, I sometimes have to induce vomiting to relieve my stuffed feeling. Response Group 11: B Group 12 A. I seem to eat just as much when I'm with others, Family social gatherings as when I'm by myself. B. Sometimes, when I'm with other persons, I don't eat as much as I want to eat because I'm self-conscious about my eating. C. Frequently, I eat only a small amount of food when others are present, because I'm very embarrassed about my eating. D. I feel so ashamed about overeating that I pick times to overeat when I know no one will see me. I feel like a closet eater. Response Group 12: A Group 13 A. I eat three meals a day with only an occasional between meal snack. B. I eat 3 meals a day, but I also normally snack between meals. C. When I am snacking heavily, I get in the habit of skipping regular meals. D. There are regular periods when I seem to be continually eating, with no planned meals. Response Group 13: D Group 14 A. I don't think much about trying to control unwanted eating urges. B. At least some of the time, I feel my thoughts are pre-occupied with trying to control my eating urges. C. I feel that frequently I spend much time thinking about how much I ate or about trying not to eat anymore. D. It seems to me that most of my waking hours are pre-occupied by thoughts about eating or not eating. I feel like I'm constantly struggling not to eat. Response Group 14: A Group 15 A. I don't think about food a great deal. B. I have strong craving for food but they last only for brief periods of time. C. I have days when I can't seem to think about anything else but food. D. Most of my days seem to be pre-occupied with thoughts about food. I feel like I live to eat. Response Group 15: B Group 16 A. I usually know whether or not I'm physically hungry. I take the right portion of food to satisfy me. B. Occasionally, I feel uncertain about knowing whether or not I'm physically hungry. A these times it's hard to know how much food I should take to satisfy me. C. Even though I might know how many calories I should eat, I don't have any idea what is a normal amount of food for me. Response Group 16: B Binge Eating Score: 17 Score less than 17 Minimal Risk Score between 18-26 Moderate Risk Score between 27-46 High Risk Assessment & Plan Assessment & Plan (1) Vitamin D deficiency: Code(s): E55.9 - Vitamin D deficiency, unspecified (2) Sleep apnea: Code(s): G47.30 - Sleep apnea, unspecified (3) Obesity: Code(s): E66.9 - Obesity, unspecified Qualifiers: Obesity type: due to excess calories Obesity classification: adult class 2 (BMI 35 - 39.9) Serious obesity comorbidity presence: with serious comorbidity Body mass index: BMI 37.0-37.9 Qualified Code(s): E66.01 - Morbid (severe) obesity due to excess calories; Z68.37 - Body mass index [BMI] 37.0-37.9, adult Plan Patient denied any serious mental health concerns. When discussing her depression scale score, she mentioned that she had been feeling unwell and lethargic for quit some time because of her health which affected her. She was hopeful, upbeat, and denied any significant depression symptoms today. She is cleared for surgery when ready. Telehealth Telehealth Telehealth Platform: Telephone Location of provider rendering services: other Location of patient: address on file Patient Identification confirmed using: Name, : Yes Telehealth method: voice only Patient verbally consented to treatment: Yes Patient verbally consented to billing insurance company: Yes Patient informed of any privacy concerns related to visit: Yes Minutes spent on Phone/Video with Pt.: 40 Coding Level of Care Code Tele Psy Diag Eval (93382) Diagnoses Vitamin D deficiency E55.9 Sleep apnea G47.30 Class 2 severe obesity due to excess calories with serious comorbidity and body mass index (BMI) of 37.0 to 37.9 in adult E66.01; Z68.37 Obesity type: due to excess calories Obesity classification: adult class 2 (BMI 35 - 39.9) Serious obesity comorbidity presence: with serious comorbidity Body mass index: BMI 37.0-37.9 Time Spent (min) 40
== END 2023-08-17 11:00 ==
PROVIDERS: PCP Internal Medicine; Visit Provider Counselor Mental Health
DX: E55.9 Vitamin D deficiency, unspecified (principal); G47.30 Sleep apnea, unspecified; E66.01 Morbid (severe) obesity due to excess calories; Z68.37 Body mass index [BMI] 37.0-37.9, adult
CPT/HCPCS: 90791

== ENCOUNTER → 2023-08-17 10:36 | Outpatient (BNVA) | payer OTHER, SELFPAY | PROVIDERS: PCP Internal Medicine; Visit Provider Counselor Mental Health | DX: E55.9 Vitamin D deficiency, unspecified (principal); G47.30 Sleep apnea, unspecified; E66.01 Morbid (severe) obesity due to excess calories; Z68.37 Body mass index [BMI] 37.0-37.9, adult ==

== ENCOUNTER 2023-08-19 07:50 | Outpatient (REF) | payer OTHER, SELFPAY ==
--- NOTE | ~2023-08-19 | US_ITS ---
EXAMINATION: US COMPLETE ABDOMEN WITH LIVER ELASTOGRAPHY CLINICAL INFORMATION: Obesity. COMPARISON: None available. TECHNIQUE: Real-time imaging of the abdominal viscera. Noninvasive ultrasound liver fibrosis assessment is performed using Yumiko ElastPQ point quantification shear wave elastography (2D-SWE) with a C5-2 MHz transducer. Multiple elastography samples are obtained. FINDINGS: PANCREAS: . The visualized pancreatic head and body are normal in appearance. The remainder of the pancreas is obscured from visualization by the overlying bowel gas. ABDOMINAL AORTA: The proximal, middle, and distal aortic segments are normal in caliber. INFERIOR VENA CAVA: Visualized portions are normal. LIVER: The liver is enlarged with increased echogenicity consistent with hepatic steatosis. No bile duct dilatation or masses. The right lobe measures 18.8 cm in length. The left lobe measures 12.0 cm in length. Portal flow is towards the liver (hepatopetal). Shear wave liver elastography median stiffness is 1.31 m/s (reference: normal median stiffness is 1.3 m/s or less). IQR/median stiffness to assess sampling precision is 0.15 (reference: good quality data set is IQR/median stiffness of 0.15 or less). GALLBLADDER: . The gallbladder is physiologically distended without evidence of stones, sludge, polyps, wall thickening or pericholecystic fluid. COMMON BILE DUCT: Normal in caliber measuring 0.3 cm in diameter. RIGHT KIDNEY: . No hydronephrosis. No renal calculi or focal parenchymal lesions. The kidney measures 10.9 cm in maximum dimension. LEFT KIDNEY: . No hydronephrosis. No renal calculi or focal parenchymal lesions. The kidney measures 10.4 cm in maximum dimension. SPLEEN: Normal. The spleen measures 11.6 cm in maximum dimension. FREE FLUID: None. US/US abdomen comp w elastography IMPRESSION: 1. Enlarged fatty liver. 2. Liver elastography: In the absence of other known clinical signs, measurements rule out compensated advanced chronic liver disease. If there are known clinical signs, further testing may be needed for confirmation. REFERENCE: Society of Radiologists in Ultrasound Liver Stiffness Thresholds (2019): LIVER STIFFNESS THRESHOLDS: *Liver Stiffness equal or less than 1.3 m/s: High probability of being normal. *Liver Stiffness less than 1.7 m/s: In the absence of other known clinical signs, rules out compensated advanced chronic liver disease. *Liver Stiffness 1.7-2.1 m/s: Suggestive of compensated advanced chronic liver disease but need further test for confirmation. *Liver Stiffness over 2.1 m/s: Rules in compensated advanced chronic liver disease. *Liver Stiffness over 2.4 m/s: Suggestive of clinically significant portal hypertension. QUALITY OF DATA SET: *IQR/Median value equal or less than 0.15 implies a quality data set. *IQR/Median value over 0.15 implies a poor quality data set. SIGNIFICANT CHANGE FROM PRIOR EXAM: Significant change if liver stiffness measurement is 10% or greater from prior exam. OTHER CONSIDERATIONS: The stage of liver fibrosis may be overestimated in the setting of acute hepatitis, liver inflammation, elevated liver function tests, hepatic vascular congestion, obstructive cholestasis, non-fasting state, and infiltrative diseases such as amyloidosis and lymphoma. In some patients with NAFLD, the liver stiffness thresholds for compensated advanced chronic liver disease may be lower. In causes other than viral hepatitis and NAFLD, liver stiffness thresholds are not well established.
== END 2023-08-19 07:51 | disposition home or self-care (01) ==
LOC: HO.US 07:50
PROVIDERS: PCP Internal Medicine; Visit Provider Surgery
DX: E66.9 Obesity, unspecified (principal); Z68.37 Body mass index [BMI] 37.0-37.9, adult; G47.30 Sleep apnea, unspecified
CPT/HCPCS: 76700; 76981

== ENCOUNTER 2023-08-23 11:18 | Day surgery (SDC) | payer OTHER, SELFPAY ==
--- NOTE | 2023-08-22 08:26 | HO.ANESPROP2 ---
Documented by User: Keila Haas NP 08/22/23 08:28 HPI - Anesthesia Eval Consult details Narrative: 42yo F for Upper Endoscopy PMFSH Active Problems Active Problems: All Active Problems Abnormal EKG (Acute) Major depression, recurrent (Acute) Vitamin D deficiency (Acute) Sleep apnea (Acute) DJD (degenerative joint disease) (Acute) GERD (gastroesophageal reflux disease) (Acute) BMI 37.0-37.9, adult (Acute) Obesity (Acute) Asthma, severe persistent (Acute) Hypertension, essential (Acute) Encounter for general adult medical examination with abnormal findings (Acute) Dilated cbd, acquired (Acute) Opacity of lung on imaging study (Acute) Hospital discharge follow-up (Acute) Right upper quadrant pain (Acute) Abnormal gall bladder diagnostic imaging (Acute) Vaginal discharge (Acute) Screen for sexually transmitted diseases (Acute) Hx of abnormal cervical Pap smear (Acute) Well woman exam with routine gynecological exam (Acute) Depression, major, severe recurrence (Acute) Homeless (Acute) Encounter for routine gynecological examination (Acute) Immunizations incomplete (Acute ~12/01/22) Dyspepsia (Acute) PTSD (post-traumatic stress disorder) (Acute) Elevated blood pressure reading (Acute) Obesity due to excess calories (Acute) Asthma, moderate persistent (Acute) Establishing care with new doctor, encounter for (Acute) Past Medical History Medical History Sleep apnea DJD (degenerative joint disease) GERD (gastroesophageal reflux disease) Obesity Social History Social History Household Members Other:: 2 sons Housing: Other Patient Tobacco Use Status: Never used Tobacco e-Cigarette/Vaping Use: Never Used Use of substances other than those prescribed or required for medical reasons: No Are you DNR?: No Advance Directives: No Advance Directives Information Provided: Yes service: No Current occupational status: employed Cognitive needs: No Hearing needs: No Vision needs: No Meds Allergies Allergy/AdvReac Type Severity Reaction Status Date / Time keaflex Allergy Severe Unresponsiv Uncoded 08/23/23 11:50 e mandy Allergy Mild Anaphylaxis Uncoded 08/23/23 11:50 Home Medications ?Medication ?Instructions ?Recorded ?Confirmed ?Last Taken ?Type dupilumab 300 mg/2 mL subcutaneous 300 mg subcut Q2W 10/08/22 08/17/23 Unknown History pen injector (Dupixent) fluticasone 500 mcg-salmeterol 50 inhalation BID 05/13/23 08/17/23 Unknown History mcg/dose blistr powdr for inhalation (Advair Diskus) magnesium 200 mg tablet 200 mg PO DAILY 06/28/23 08/23/23 08/22/23 History montelukast 10 mg tablet 10 mg PO DAILY 06/28/23 08/23/23 08/22/23 History (Singulair) zafirlukast 20 mg tablet 20 mg PO BID 06/28/23 08/23/23 08/22/23 History Exam Pertinent Lab Results Pertinent Lab Results: Laboratory Tests 08/08/23 10:45 WBC 6.8 Hgb 12.4 Hct 37.6 Plt Count 278 Sodium 141 Potassium 3.8 Chloride 105 Carbon Dioxide 25 BUN 13 Creatinine 0.73 Narrative Narrative: EKG 07/2023 Vent. Rate : 078 BPM Atrial Rate : 078 BPM P-R Int : 136 ms QRS Dur : 100 ms QT Int : 390 ms P-R-T Axes : 042 002 030 degrees QTc Int : 444 ms Sinus rhythm with sinus arrhythmia with occasional Premature ventricular complexes Possible Left atrial enlargement Left ventricular hypertrophy ( R in aVL , Titus product ) Nonspecific ST abnormality Abnormal ECG No previous ECGs available Assessment and Plan Assessment Anesthesia Assessment: Chart Reviewed Documented by User: Shari Sheridan MD 08/23/23 13:15 PMFSH Past Medical History Medical History Sleep apnea DJD (degenerative joint disease) GERD (gastroesophageal reflux disease) Obesity Family History Family history of problems with anesthesia: No Surgical History History of Problems with Anesthesia: No Social History Social History Household Members Other:: 2 sons Housing: Other Patient Tobacco Use Status: Never used Tobacco e-Cigarette/Vaping Use: Never Used Use of substances other than those prescribed or required for medical reasons: No Are you DNR?: No Advance Directives: No Advance Directives Information Provided: Yes service: No Current occupational status: employed Cognitive needs: No Hearing needs: No Vision needs: No Meds Allergies Allergy/AdvReac Type Severity Reaction Status Date / Time keaflex Allergy Severe Unresponsiv Uncoded 08/23/23 11:50 e mandy Allergy Mild Anaphylaxis Uncoded 08/23/23 11:50 Home Medications ?Medication ?Instructions ?Recorded ?Confirmed ?Last Taken ?Type dupilumab 300 mg/2 mL subcutaneous 300 mg subcut Q2W 10/08/22 08/17/23 Unknown History pen injector (Dupixent) fluticasone 500 mcg-salmeterol 50 inhalation BID 05/13/23 08/17/23 Unknown History mcg/dose blistr powdr for inhalation (Advair Diskus) magnesium 200 mg tablet 200 mg PO DAILY 06/28/23 08/23/23 08/22/23 History montelukast 10 mg tablet 10 mg PO DAILY 06/28/23 08/23/23 08/22/23 History (Singulair) zafirlukast 20 mg tablet 20 mg PO BID 06/28/23 08/23/23 08/22/23 History Exam Airway Mallampati Class: II TM Dist: >3cm Neck ROM: Full Heart: rrr Lungs: cta Assessment and Plan Assessment Anesthesia Assessment: Anesthesia Plan Discussed Final Anesthetic Review Family History of Problems with Anesthesia: No History of Problems with Anesthesia: No NPO: Yes ASA Class: III Final Preanesthetic Review: No Changes in Pt Med Stat, Meds/Allgs Chart Reviewed, Consent Obtained/Reviewed and Anes Risks/Benef Reviewed Patient Risk: Intermediate Procedure Risk: Low Anesthetic Plan Anesthetic Plan: MAC: Disposition: Standard PACU
[2023-08-23 11:43] VITALS: BMI 35.9
[2023-08-23 12:10] LABS: UPreg QC Valid YES; Urine Pregnancy NEGATIVE (NEGATIVE)
[2023-08-23 12:16] VITALS: BP 149/99; PULSE 71; RESP 16; TEMP 36.3; O2SAT 96
[2023-08-23] MEDS: Lactated Ringers 1,000 ML 80 ML IVCONT (12:19)
--- NOTE | 2023-08-23 14:57 | MHC.SHP ---
Pre-Procedural Eval Section A - 24 Hr Update-Section A only Date of Service: 08/23/23 The patient is an INPATIENT: No The patient has been examined within 24 hours of the surgical procedure. The History & Physical has been completed within 30 days and I have reviewed it.: Yes Section B - Complete if H&P > 30 days Chief Complaint: Morbid (severe) obesity due to excess calories Details of Present Illness: GERD Relevant Family History (Specify if Yes): No Relevant Social History: None Present Medications: None Medical History: No relevant PMH History of Previous Operations: No relevant previous surgery Allergies: Allergies Allergy/AdvReac Type Severity Reaction Status Date / Time keaflex Allergy Severe Unresponsiv Uncoded 08/23/23 11:50 e mandy Allergy Mild Anaphylaxis Uncoded 08/23/23 11:50 Review of Systems Sugical H&P ROS: Negative: Constitution, Cardiovascular, Respiratory, Neurological, Psychiatric, Hem-Onc, Allergic/Immunologic, Gastrointestinal, Genitourinary, Musculoskeletal, Integumentary, Endocrine and Eyes/Ears/Nose/Throat Exam Surgical H&P Exam: Normal: HEENT, Normal: Heart, Normal: Lungs, Normal: Extremities, Normal: Abdomen, Normal: Skin and Normal: Neurological Plan Diagnosis/Plan: Unchanged (EGD to assess etiology of GERD. Risks of bleeding and perforation were discussed with the patient and she is in agreement with the plan.) I have reviewed the history and physical and performed a pertinent physical examination on my patient. No changes have occurred unless specified. Time Spent With Patient Time: Total time managing care of this patient today ____ minutes.
--- NOTE | 2023-08-23 15:42 | P.BOP_ITS ---
Brief Operative Note Date of Service: 08/23/23 Pre-op diagnosis: GERD Post-op diagnosis: same (& diaphragmatic hernia) Procedure: PROCEDURE DATE: 08/23/2023 PREOPERATIVE DIAGNOSIS: GERD POSTOPERATIVE DIAGNOSIS: ?Same as above. 1) small hiatal hernia PROCEDURE: [id number] with biopsies Surgeon: ?Mendoza Francis M.D.. Ph.D. Elementary Classroom Teacher: None ? Anesthesia: IV sedation Estimated blood loss: ?Minimal FINDINGS AND PROCEDURE: ? OPERATIVE INDICATIONS: ?The patient is a 42 year old female known to me who is interested in bariatric surgery. The patient has GERD. Based on this information I recommended an upper endoscopy to evaluate the patient's symptoms. Risks and complications of the surgery were discussed with the patient in advance particularly the possibility of perforation or bleeding that may require surgical intervention. The patient understood the risks and was in agreement with the plan. ? PROCEDURE: After informed consent was obtained by the patient, the patient was ?transferred to the Operating Room and was placed in the supine position.? After successful induction of IV sedation, a mouth block was inserted and the patient was placed in the left lateral decubitus position. An upper endoscopy was performed next, the oropharynx and esophagus appeared within the normal limits. There was a 3cm hiatal hernia. The z-line was smooth. Two biopsies were obtained from the distal esophagus 2-3 cm proximal to the GE junction and two additional biopsies from the GE junction. The stomach was entered and it appeared to be of normal size. There was no gastritis. There was no stricture or ulcer. A biopsy was obtained from the gastric fundus and the antrum. No significant bleeding was noted from any of the biopsy sites. Retroflexion of the scope confirmed the presence of a small diaphragmatic hernia. The scope was then advanced into the duodenum which appeared to be normal as well. At that point the duodenum ?and the stomach were decompressed and the scope was withdrawn from the patient's mouth. The patient extubated and was transferred in stable condition to the Recovery Room for further care. I was present and performed all steps of the procedure. There were no residents to assist with this case. Mendoza Francis M.D., Ph.D. Surgeon: Mumtaz Francis MD Anesthesia: MAC Was an Elementary Classroom Teacher used for this Procedure?: No Estimated blood loss (mL): 0 IV fluids (mL): 400 Urine output (mL): 0 (No Sena to record output) Pathology: other (1) antrum x1, 2) fundus x1, 3) GE junction x2, 4) distal esophagus x2) Condition: stable Disposition: PACU
--- NOTE | 2023-08-23 16:00 | PC.NURSE ---
Patient voiced to this nurse in preop that she was going to work after procedure today. I need to be at work for 4:30/5, I am getting a ride dont worry . 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 Dr. Haywood and Dr. Slade made aware. Dr. Slade at bedside to discuss with patient. Patient agrees she will skip work for today and needs to go home and rest after anesthesia.
[2023-08-23 16:41] VITALS: BP 135/95; PULSE 87; RESP 18; TEMP 36.5; O2SAT 97
[2023-08-23 16:56] VITALS: BP 144/96; PULSE 72; RESP 18; TEMP 36.4; O2SAT 99
== END 2023-08-23 17:08 | disposition home or self-care (01) ==
PROVIDERS: Nurse Practitioner; PCP Internal Medicine; Visit Provider Surgery
PROC: 0DJ08ZZ Inspection of Upper Intestinal Tract, Via Natural or Artificial Opening Endoscopic (ICD-10-PCS; CPT 43235; principal; 2023-08-23 13:30)
DX: K21.9 Gastro-esophageal reflux disease without esophagitis (principal); K44.9 Diaphragmatic hernia without obstruction or gangrene; E66.01 Morbid (severe) obesity due to excess calories; Z68.37 Body mass index [BMI] 37.0-37.9, adult; G47.30 Sleep apnea, unspecified; M19.90 Unspecified osteoarthritis, unspecified site; Z79.51 Long term (current) use of inhaled steroids; Z79.899 Other long term (current) drug therapy; Z88.8 Allergy status to other drugs, medicaments and biological substances
CPT/HCPCS: 43239; 81025; 88305; 88313; 88342; J2250; J2704

== ENCOUNTER → 2023-08-23 11:18 | Outpatient (BNV) | payer OTHER, SELFPAY | PROVIDERS: PCP Internal Medicine; Visit Provider Surgery | DX: K44.9 Diaphragmatic hernia without obstruction or gangrene (principal) | CPT/HCPCS: 43239 ==

== ENCOUNTER → 2023-09-08 09:58 | Outpatient (REF) | payer OTHER, SELFPAY ==
--- NOTE | 2023-09-08 10:01 | CA_ITS ---
Transthoracic Echocardiogram Patient (Last, First, Middle): Candice Alcantara, Gender: Female Date of : 1980 Age: 43 Procedure Date: 09/08/2023 Procedure Type: Transthoracic Echocardiogram Location: OP Height: 177.8 cm Weight: 113.4 kg BSA: 2.29 m2 Heart Rate: bpm BP: 134 / 88 mmHg Juvenile Justice Specialist: GENE Referring MD: Mumtaz Francis MD Symptoms: R94.31 - Abnormal electrocardiogram [ECG] [EKG] Study Quality: Adequate with contrast ECG Rhythm: Sinus with PVCs Conclusions: - The left ventricular systolic function is low normal. The visually estimated ejection fraction is between 50-55%. - Moderately increased right ventricular cavity size. - No obvious valvular pathology seen on this study. Findings Procedure Information Contrast agent, definity, is being given per protocol without apparent complications. Left Ventricle Normal left ventricular cavity size. There is normal left ventricular wall thickness. The left ventricular systolic function is low normal. The visually estimated ejection fraction is between 50-55%. There is no evidence of regional wall motion abnormalities. Diastolic function is normal for age. Right Ventricle Moderately increased right ventricular cavity size. There is normal right ventricular systolic function. Atria Both atria are normal in size. Aortic Valve There is a normal trileaflet aortic valve. There is no aortic valve stenosis. There is no aortic valve regurgitation. Mitral Valve The mitral valve appears normal. There is trace mitral valve regurgitation. There is no mitral valve stenosis. Pulmonic Valve The pulmonic valve is likely normal. Tricuspid Valve Normal tricuspid valve structure. There is mild tricuspid valve regurgitation. There is no evidence of pulmonary hypertension. Great Vessels The asc aorta is normal in size. Venous The inferior vena cava is normal in size and collapses greater than 50% with inspiration. Pericardium/Pleural There is no evidence of pericardial effusion. Prior Study Comparison No prior study available for comparison. Recommendations, Care & Conclusions No obvious valvular pathology seen on this study. Measurements 2D Linear Measurements IVSd: 0.94 0.6-0.9/0.6-1.0 cm LVIDd: 5.67 3.9-5.3/4.2-5.9 cm LVIDd Index: 2.48 2.4-3.2/2.2-3.1 cm/m2 LVIDs: 4.62 2.0-3.6 cm LVPWd: 1.01 0.7-1.1 cm LA Diam: 3.50 2.7-3.8/3.0-4.0 cm LAIDs Index: 1.53 1.5-2.3 cm/m2 LV Mass: 271.12 67-162/88-224 g LV Mass Index: 118.39 43-95/49-115 g/m2 LVOT Diam: 2.40 3.0+(-)1.3 cm 2D Systolic Function EF 4C: 58.20 >55% EF 2C: 54.20 >55% EF BiP: 56.60 >55% Mitral Valve MV Pk E: 0.76 MV PK A: 0.54 MV Decel Time: 224.00 E/A: 1.40 E'Lateral: 7.94 E'Medial: 5.98 E/E' Med: 12.70 E/E' Lat: 9.50 PHT: 66.00 MVA PHT: 3.33 Decel [place]: 3.38 Aortic Valve AoV Pk Nilo: 1.37 AoV Mn Nilo: 1.04 AoV VTI: 0.30 AoV Pk Grad: 8.00 Aov Mn Grad: 5.00 CY Cont.VTI: 3.44 LVOT LVOT Pk Nilo: 0.95 LVOT Mn Nilo: 0.70 LVOT VTI: 0.23 LVOT Pk Grad: 4.00 LVOT Mn Grad: 2.00 LVOT Diam: 2.40 LVOT Area: 4.52 Diastolic Function MV Pk E: 0.76 MV Pk A: 0.54 E/A: 1.40 E'Medial: 5.98 E/E' Med: 12.70 E' Laterial: 7.94 E/E' Lat: 9.50 Right Ventricle TAPSE (mm): 23.50 TVS' Nilo: 13.10 Tricuspid Valve TR Pk Nilo: 2.25 TR Pk Grad: 20.00 RA Press: 3.00 RVSP: 23.00 Great Vessels Aorta Sinus of Valsalva: 3.26 2.0-3.[address] [place]: 2.57 1.7-3.4 cm Ao Asc: 3.60 2.1-3.4 cm Updated in Other Vendor System with Status of Final Perez Cadet MD electronically signed on 09/10/2023 9:55:23 AM with status of Final
== END ==
LOC: HO.CARD 09:58
PROVIDERS: PCP Internal Medicine; Visit Provider Surgery
DX: R94.31 Abnormal electrocardiogram [ECG] [EKG] (principal)
CPT/HCPCS: 93306; Q9957

== ENCOUNTER → 2023-09-08 10:01 | Outpatient (BNV) | payer OTHER, SELFPAY | PROVIDERS: PCP Internal Medicine; Visit Provider Internal Medicine | DX: I36.1 Nonrheumatic tricuspid (valve) insufficiency (principal); R94.31 Abnormal electrocardiogram [ECG] [EKG] | CPT/HCPCS: 93306 ==

== ENCOUNTER → 2023-09-09 10:03 | Outpatient (REF) | payer OTHER, SELFPAY ==
--- NOTE | 2023-09-09 10:06 | CA_ITS ---
Acquisition Time: 2023-09-09 10:27:59 Total Exercise Time: 00:06:54 Test Indications: Abnormal ECG Medications: SEE H Protocol: PHIL Max HR: 155 BPM 88% of Pred: 175 BPM Max BP: 152/088 mmHG Max Work Load: 8.3 METS Exercise stress test 6 min 54 sec of Phil protocol achieving 88% MPHE, with mild to moderate SOB, without chest pain, isolated PVCs , venticular bigeminy, Ventricular cuplet, with scooping in leads 2, aVF, V5-V6 . Test reviewed with Dr. Cadet. Recomend Echocardiogram, stress echo, and Holter to assess vencitulcar ectopy. Referred By: Mumtaz Francis Overread By: Gloria Kelley
== END ==
LOC: HO.CARD 10:03
PROVIDERS: PCP Internal Medicine; Visit Provider Surgery
DX: R94.31 Abnormal electrocardiogram [ECG] [EKG] (principal)
CPT/HCPCS: 93017

== ENCOUNTER → 2023-09-09 10:06 | Outpatient (BNV) | payer OTHER, SELFPAY | PROVIDERS: PCP Internal Medicine; Visit Provider Nurse Practitioner | DX: R06.02 Shortness of breath (principal); I49.3 Ventricular premature depolarization | CPT/HCPCS: 93016; 93018 ==

== ENCOUNTER 2024-06-27 14:24 | Outpatient (AMB) | payer OTHER, SELFPAY ==
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
[2024-06-27 14:31] VITALS: BP 160/100; PULSE 87; TEMP 36.8; O2SAT 97; BMI 37.3
== END 2024-06-27 15:13 | disposition home or self-care (01) ==
PROVIDERS: PCP Internal Medicine; Visit Provider Physician Assistant
DX: M62.830 Muscle spasm of back (principal); I10 Essential (primary) hypertension

== ENCOUNTER → 2024-06-27 14:24 | Outpatient (BNVA) | payer OTHER, SELFPAY | PROVIDERS: PCP Internal Medicine; Visit Provider Physician Assistant ==

== ENCOUNTER 2024-07-03 14:47 | Outpatient (AMB) | payer OTHER, SELFPAY ==
[2024-07-03 14:55] VITALS: BP 128/82; PULSE 85; O2SAT 97; BMI 37.6
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
== END 2024-07-03 15:23 | disposition home or self-care (01) ==
PROVIDERS: PCP Internal Medicine; Visit Provider Internal Medicine
DX: I10 Essential (primary) hypertension (principal); J45.50 Severe persistent asthma, uncomplicated; E66.01 Morbid (severe) obesity due to excess calories; Z68.35 Body mass index [BMI] 35.0-35.9, adult; E55.9 Vitamin D deficiency, unspecified; F41.1 Generalized anxiety disorder; F43.0 Acute stress reaction

== ENCOUNTER → 2024-07-03 14:47 | Outpatient (BNVA) | payer OTHER, SELFPAY | PROVIDERS: PCP Internal Medicine; Visit Provider Internal Medicine | DX: M25.511 Pain in right shoulder (principal); M62.838 Other muscle spasm; S46.811A Strain of other muscles, fascia and tendons at shoulder and upper arm level, right arm, initial encounter; V89.2XXA Person injured in unspecified motor-vehicle accident, traffic, initial encounter; Y93.9 Activity, unspecified; Y92.9 Unspecified place or not applicable; Y99.9 Unspecified external cause status | CPT/HCPCS: 96127; 99212 ==

== ENCOUNTER 2024-07-03 15:10 | Outpatient (AMB) | payer OTHER, SELFPAY ==
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
== END 2024-07-03 15:23 | disposition home or self-care (01) ==
LOC: HO.HMCC 15:10
PROVIDERS: PCP Internal Medicine; Visit Provider Internal Medicine
DX: S46.811A Strain of other muscles, fascia and tendons at shoulder and upper arm level, right arm, initial encounter (principal); M62.838 Other muscle spasm; M25.511 Pain in right shoulder; Z04.3 Encounter for examination and observation following other accident; M54.9 Dorsalgia, unspecified; V89.2XXA Person injured in unspecified motor-vehicle accident, traffic, initial encounter

== ENCOUNTER 2024-07-12 08:00 | Outpatient (AMB) | payer OTHER, SELFPAY ==
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
== END 2024-07-12 09:27 | disposition home or self-care (01) ==
PROVIDERS: PCP Internal Medicine; Visit Provider Internal Medicine
DX: S46.811A Strain of other muscles, fascia and tendons at shoulder and upper arm level, right arm, initial encounter (principal); V89.2XXA Person injured in unspecified motor-vehicle accident, traffic, initial encounter; M62.838 Other muscle spasm; Z04.3 Encounter for examination and observation following other accident; M25.511 Pain in right shoulder; M54.9 Dorsalgia, unspecified

== ENCOUNTER → 2024-07-12 08:00 | Outpatient (BNVA) | payer OTHER, SELFPAY | PROVIDERS: PCP Internal Medicine; Visit Provider Internal Medicine | DX: Z13.89 Encounter for screening for other disorder (principal) ==

== ENCOUNTER 2024-09-10 13:11 | Outpatient (REF) | payer OTHER, SELFPAY ==
--- NOTE | ~2024-09-10 | XR_ITS ---
EXAMINATION: XR HIP 2 OR MORE VIEWS RIGHT HISTORY: M25.551 - Pain in right hip COMPARISON: There are no prior studies available for comparison. FINDINGS: Two views of the right hip are submitted. Osseous mineralization is normal. There is no fracture or dislocation. There is mild to moderate joint space narrowing. The soft tissues are unremarkable. XR/XR hip RT min 2V IMPRESSION: Mild to moderate joint space narrowing. Electronically signed by: Lyle Louis MD 09/10/2024 03:06 PM EDT
== END 2024-09-10 13:12 | disposition home or self-care (01) ==
LOC: HO.HMGCX 13:11
PROVIDERS: PCP Internal Medicine; Visit Provider Nurse Practitioner Family
DX: M25.551 Pain in right hip (principal)
CPT/HCPCS: 73502

== ENCOUNTER 2024-09-10 13:11 | Outpatient (AMB) | payer OTHER, SELFPAY ==
[2024-09-10 13:53] VITALS: BP 142/90; PULSE 80; TEMP 37.1; O2SAT 97; BMI 38.3
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
--- OUTSIDE RECORDS SUMMARY | 2024-09-10 13:55 | XMS_ITS | Encounter Summary ---
Author Organization [facility] Address [address] [place] [address] [place] [id number] Phone Care Team Providers Care Rn Bariatric Name Role Phone Chasity Larson MD Primary Care Provider [phone] Encounter Details Date Type Department Care Team (Late st Contact Info) Description 05/06/2023 Procedure Pass [facility], Ct Scan - [address] [address] Social History Tobacco Use Types Packs/Day Years Used Date Smoking Tobacco: Never Assessed Education Answer Date Recorded Are you interested in more education? Not on catherine e 06/12/2022 Are you concerned about learning? Not on file 06/12/2022 No 06/12/2022 No 06/12/2022 Digital Access Answer Date Recorded No 07/11/2022 No 07/11/2022 Reliable internet access at home? Not on file 07/11/2022 Device with a working camera? Not on file Intimate Partner Violence Answer Date R ecorded Are you denied basic needs s uch as food, clothing, or medical care? No 05/07/2023 In the past 12 months have y ou been in a relationship with a person who hurts, threatens, or tries to control you? No 05/07/2023 Are you denied basic needs s uch as food, clothing, or medical care? No 05/07/2023 In the past 12 months have y ou been in a relationship with a person who hurts, threatens, or tries to control you? No 05/07/2023 Comments No Sex and Gender Information Value Date Recorded Sex Assigned at Female 05/07/2023 9:04 PM EDT Legal Sex Female 11:23 AM EST Gender Identity Female 05/07/2023 9:04 PM EDT Sexual Orientation Straight 05/07/2023 9: 04 PM EDT documented as of this encounter Functional Status * Calculated C-SSRS Risk Score (Lifetime/Recent) Answer Date of Assessment Author No Risk Indicated 05/07/2023 9:04 PM EDT Mere oLve, RN * [place] Suicide Severity Rating Scale (Screener/Recent Self-Report) Question Answer Date of Assessment Author 1. Wish to be (Past 1 Month) No 024 9:04 PM EDT Mere Pierce, RN 2. Non-Specific Active Suici keagan Thoughts (Past 1 Month) No 05/07/2023 9:04 PM EDT Memo Pierce RN 6. Suicidal Behavior (Lifetime) No 9:04 PM EDT Mere Pierce, RN documented as of this encounter Plan of Treatment Not on file documented as of this encounter Visit Diagnoses Not on filedocumented in this encounter Care Teams Rn Bariatric Relationship Specialty Start Date End Date Chasity Larson MD [facility] [place] [address] PCP - General Internal Medicine 06/29/22 documented as of this encounter Additional Source Comments The information contained in this document represents components of the legal health record. It is not the complete legal health record.[facility]
== END 2024-09-10 14:44 | disposition home or self-care (01) ==
PROVIDERS: PCP Internal Medicine; Visit Provider Nurse Practitioner Family
DX: M25.551 Pain in right hip (principal)

== ENCOUNTER → 2024-09-10 14:47 | Outpatient (BNV) | payer OTHER, SELFPAY | PROVIDERS: PCP Internal Medicine; Visit Provider Radiology Diagnostic Radiology | DX: M16.11 Unilateral primary osteoarthritis, right hip (principal) | CPT/HCPCS: 73502 ==

== ENCOUNTER 2025-01-01 15:46 | Outpatient (AMB) | payer OTHER, SELFPAY ==
[2025-01-01 15:50] VITALS: BP 152/90; PULSE 78; TEMP 36.8; O2SAT 98; BMI 38.6
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
== END 2025-01-01 16:21 | disposition home or self-care (01) ==
PROVIDERS: PCP Internal Medicine; Visit Provider Physician Assistant
DX: M54.2 Cervicalgia (principal); M25.511 Pain in right shoulder; V89.2XXA Person injured in unspecified motor-vehicle accident, traffic, initial encounter; S46.811A Strain of other muscles, fascia and tendons at shoulder and upper arm level, right arm, initial encounter

== ENCOUNTER → 2025-01-08 15:55 | Outpatient (BNV) | payer OTHER, SELFPAY ==
--- NOTE | 2025-01-08 15:56 | AM.OFFVISNUR ---
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 1. Little interest or pleasure in doing things: nearly every day 2. Feeling down, depressed, or hopeless: several days 3. Trouble falling or staying asleep, or sleeping too much: nearly every day 4. Feeling tired or having little energy: nearly every day 5. Poor appetite or overeating: nearly every day 6. Feeling bad about yourself - or that you are a failure or have let yourself or your family down: not at all 7. Trouble concentrating on things, such as reading the newspaper or watching television: more than half the days 8. Moving or speaking so slowly that other people could have noticed. Or the opposite - being so fidgety or restless that you have been moving around a lot more than usual: several days 9. Thoughts that you would be better off or of hurting yourself in some way: not at all Total score: 16 Depression Screening Interpretation: Positive Depression Screening Follow-up: Community Mental Health Worker F/U and Follow-up Visit Requested Depression Screening Done: Yes Source: Developed by Drs. Lyle Gant, Agnieszka Tong, Cristian Pettit and colleagues, with an educational romeo from [employer].
== END ==
PROVIDERS: PCP Internal Medicine
DX: M54.2 Cervicalgia (principal); M25.511 Pain in right shoulder
CPT/HCPCS: 99211

== ENCOUNTER 2025-02-12 11:43 | Outpatient (REF) | payer OTHER, SELFPAY ==
[2025-02-12 16:17] LABS: MANUAL DIFF FLAG NO
[2025-02-12 16:28] LABS: Hematocrit 40.7 % (37.0-47.0); Hemoglobin 13.3 g/dl (12.0-16.0); Imm Gran Abs Auto 0.01 X10*3/uL (0.00-0.03); Imm Gran Pct Auto 0.2 % (0.0-0.4); Lymphocytes Absolute Auto 2.0 X10*3/uL (1.2-4.9); Mean Corpuscular HGB Conc 32.7 g/dl (31.0-35.0); Mean Corpuscular Hemoglobin 27.9 pg (27.0-33.0); Mean Corpuscular Volume 85.5 fL (80.0-98.0); NRBC Abs Auto 0.000 X10*3/uL (0.0-0.012); NRBC Pct Auto 0.0 /100WBC (0.0-0.2); Platelet Count 317 X10*3/uL (160-400); Red Blood Count 4.76 X10*6/uL (4.20-5.50); White Blood Count 6.5 X10*3/uL (4.8-10.8)
[2025-02-12 16:50] LABS: Alanine Aminotransferase 31 U/L (0-31); Albumin Level 4.4 g/dL (3.5-5.0); Alkaline Phosphatase 99 U/L (39-117); Anion Gap 12 (12-20); Aspartate Amino Transferase 35 U/L (5-31); Blood Urea Nitrogen 12 mg/dL (9-16); Calcium 9.5 mg/dL (8.4-10.2); Carbon Dioxide 26 mmol/L (22-29); Chloride 104 mmol/L (96-108); Cholesterol 199 mg/dL (<200); Estimated Glomerular Filt Rate > 60; HDL Cholesterol 48 mg/dL (>40); Magnesium 2.0 mg/dL (1.6-2.6); Potassium 3.6 mmol/L (3.3-5.1); Sodium 138 mmol/L (135-145); Total Protein 7.7 g/dL (6.5-8.0); Triglycerides 138 mg/dL (<150)
[2025-02-16 15:04] LABS: Vitamin D 25-OH, D2 <4 ng/mL; Vitamin D 25-OH, D3 21 ng/mL; Vitamin D 25-OH, Total 21 ng/mL (30-100)
== END 2025-02-12 11:44 | disposition home or self-care (01) ==
LOC: HO.HMGCLDS 11:43
PROVIDERS: PCP Internal Medicine; Visit Provider Internal Medicine
DX: Z00.01 Encounter for general adult medical examination with abnormal findings (principal); J45.50 Severe persistent asthma, uncomplicated; I10 Essential (primary) hypertension; R07.9 Chest pain, unspecified; M54.2 Cervicalgia; M54.9 Dorsalgia, unspecified; M62.838 Other muscle spasm; E66.01 Morbid (severe) obesity due to excess calories; K21.9 Gastro-esophageal reflux disease without esophagitis; E55.9 Vitamin D deficiency, unspecified; Z68.35 Body mass index [BMI] 35.0-35.9, adult
CPT/HCPCS: 36415; 80053; 80061; 82306; 83721; 83735; 84443; 85025; 99212; 99396

== ENCOUNTER 2025-02-12 11:43 | Outpatient (AMB) | payer OTHER, SELFPAY ==
[2025-02-12 11:47] VITALS: BP 152/104; PULSE 73; RESP 18; TEMP 36.7; O2SAT 98; BMI 38.5
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
--- OUTSIDE RECORDS SUMMARY | 2025-02-12 15:47 | XMS_ITS | Encounter Summary ---
Author Organization [facility] Address [address] [facility] [address] [place] [phone] Phone Care Team Providers Care Checking Clerk Name Role Phone Chasity Larson MD Primary Care Provider [phone] Encounter Details Date Type Department Care Team (Late st Contact Info) Description 05/06/2023 Procedure Pass [facility], Ct Scan - [facility] [address] [place] [address] Social History Tobacco Use Types Packs/Day Years [...] PM EDT documented as of this encounter Plan of Treatment Not on file documented as of this encounter Visit Diagnoses Not on filedocumented in this encounter Care Teams Checking Clerk Relationship Specialty Start Date End Date Chasity Larson MD [address] [place] [address] PCP - General Internal Medicine 06/29/22 documented as of this encounter Additional Source Comments The information contained in this document represents components of the legal health record. It is not the complete legal health record.[facility]
--- OUTSIDE RECORDS SUMMARY | 2025-02-12 15:47 | XMS_ITS | Encounter Summary ---
Author Organization [facility] Address [address] [facility] [address] [place] [phone] Phone Care Team Providers Care Animal Tech Name Role Phone Chasity Larson MD Primary Care Provider [phone] Encounter Details Date Type Department Care Team (Late st Contact Info) Description 05/07/2023 Procedure Pass [facility], Ct Scan - [facility] [address] [place] [address] Social History Tobacco Use Types Packs/Day Years Used Date Smoking Tobacco: Never Smokeless Tobacco: Never Alcohol Use Standard Drinks/Week Comments Not Currently 0 (1 standard drink = 0.6 oz pur e alcohol) Education Answer Date Recorded Are you interested [...] on filedocumented in this encounter Care Teams Animal Tech Relationship Specialty Start Date End Date Chasity Larson MD [facility] [place] [address] PCP - General Internal Medicine 06/29/22 documented as of this encounter Additional Source Comments The information contained in this document represents components of the legal health record. It is not the complete legal health record.[facility]
--- OUTSIDE RECORDS SUMMARY | 2025-02-12 15:47 | XMS_ITS | Encounter Summary ---
Author Organization [facility] Address [address] [facility] [address] [place] [phone] Phone Care Team Providers Care Structural Shop Helper Name Role Phone Pcp, Unknown Primary Care Provider Chasity Horvath MD Primary Care Provider [phone] Encounter Details Date Type Department Care Team (Late st Contact Info) Description 05/19/2022 Procedure Pass [facility], Ct Scan - [facility] [address] [place] [address] Social History Tobacco Use Types Packs/Day Years Used Date Smoking Tobacco: Never Assessed Comments No Sex and Gender Information Value [...] on filedocumented in this encounter Care Teams Structural Shop Helper Relationship Specialty Start Date End Date Pcp, Unknown PCP - General 03/26/22 06/28/22 Chasity Larson MD [facility] [place] [address] PCP - General Internal Medicine 06/29/22 documented as of this encounter Additional Source Comments The information contained in this document represents components of the legal health record. It is not the complete legal health record.[facility]
--- OUTSIDE RECORDS SUMMARY | 2025-02-12 15:47 | XMS_ITS | Clinical Summary ---
Author Organization [facility] Address [address] [facility] [address] [place] [address] Phone Care Team Providers Care Marketing Administrator Name Role Phone Chasity Larson MD Primary Care Provider [phone] Allergies Active Allergy Reactions Criticality Noted Date Comments Cephalexin 04/14/2022 Medications albuterol 2.5 mg /3 mL (0.083 %) nebulizer solution Inhale 2.5 mg into the lungs. 2 Active DUPIXENT SYRINGE 300 mg/2 mL subcutaneous syringe 3 Active morphine (MSIR) 15 MG tablet Take 0.5 tablets (7.5 mg total) by mouth every 4 (four) hours as needed for pain (specific location in comments). Partial fill ok 5 tablet 3 Active Additional Information Patient not taking.Reported on 06/29/2022 loratadine (CLARITIN) 10 mg tablet Take 1 tablet (10 mg total) by mouth daily. 30 tablet 3 Active zafirlukast (ACCOLATE) 20 MG tablet TAKE 1 TABLET BY MOUTH TWICE DAILY NEEDED, NOT TO BE TAKEN WITH MONTELUKAST 3 Active omeprazole (PRILOSEC) 20 MG capsule Take 1 capsule (20 mg total) by mouth daily. 30 capsule 4 Active oxyCODONE 5 MG immediate release tablet Take 1 tablet (5 mg total) by mouth every 4 (four) hours as needed. Partial fill ok 10 tablet 4 Active Active Problems No known active problems Encounters Date Type Department Care Team Description 02/05/2025 1:56 PM EST - 02/05/2025 3:48 PM EST Emergency [facility] [address] [place] [address] Discharge Disposition: Home or Self Care from Last 3 Months Social History Tobacco Use Types Packs/Day Years Used Date Smoking Tobacco: Never Smokeless Tobacco: Never Tobacco Cessation:Counseling Given: Not Answered Alcohol Use Standard Drinks/Week Comments Not Currently 0 (1 standard drink = 0.6 oz pur e alcohol) Education Answer Date Recorded Are you interested in more education? Not on catherine e 06/12/2022 Are you concerned about learning? Not on file 06/12/2022 No 06/12/2022 No 06/12/2022 Food Answer Date Recorded Within the past 6 months we worried whether our food would run out before we got money to buy more. Never True 02/05/2025 Within the past 6 months the food we bought just didn't last and we didn't have enough money to get more. Never True Residential Stability Answer Date Recor ded What is your housing situation today? I have anastacia sing 02/05/2025 How many times have you move d in the past 12 months? Zero (I did not move) 02/05/2025 Paying for Meds Answer Date Recorded Do you have trouble paying for medicines? No 02/05/2025 Paying Utility Bills Answer Date Record ed Do you have trouble paying your heating or elect ricity bill? No 02/05/2025 Transportation Answer Date Recorded Has the lack of transportati on kept you from medical appointments or from getting medications? No 02/05/2025 Digital Access Answer Date Recorded No 02/05/2025 Yes 02/05/2025 Do you have reliable internet access at home? Ye s 02/05/2025 Do you have a device (e.g., phone, tablet, computer) with a working camera? Yes 02/05/2025 Intimate Partner Violence Answer Date R ecorded Are you denied basic needs s uch as food, clothing, or medical care? No 02/05/2025 In the past 12 months have y ou been in a relationship with a person who hurts, threatens, or tries to control you? No 02/05/2025 Are you denied basic needs s uch as food, clothing, or medical care? No 02/05/2025 In the past 12 months have y ou been in a relationship with a person who hurts, threatens, or tries to control you? No 02/05/2025 Comments No Sex and Gender Information Value Date Recorded Sex Assigned at Female 05/07/2023 9:04 PM EDT Legal Sex Female 11:23 AM EST Gender Identity Female 05/07/2023 9:04 PM EDT Sexual Orientation Straight 05/07/2023 9: 04 PM EDT Last Filed Vital Signs Vital Sign Reading Time Taken Comments Blood Pressure 189/108 02/05/2025 3:33 PM EST Pulse 72 02/05/2025 3:33 PM EST Temperature 36.9 C (98.4 F) 02/05/2025 1:39 PM EST Respiratory Rate 15 02/05/2025 3:33 PM EST Oxygen Saturation 97% 02/05/2025 3:33 PM EST Inhaled Oxygen Concentration - - Weight 117.9 kg (260 lb) 02/05/2025 2:07 PM EST Height 177.8 cm (5' 10 ) 02/05/2025 2:07 PM EST Body Mass Index 37.31 02/05/2025 2:07 PM EST Plan of Treatment Health Maintenance Due Date Last Done Comments Adult Td,Tdap Booster 1978 LIPID PANEL 1978 DEPRESSION SCREENING 1990 HEPATITIS C SCREENING 1996 HIV ONE-TIME SCREENING (18-6 5 YEARS) 1996 PAP SMEAR 08/26/1999 MAMMOGRAM 2018 COLOGUARD 08/26/2023 COLONOSCOPY 08/26/2023 COLORECTAL CANCER SCREENING 08/26/2023 FIT TEST 08/26/2023 FOBT 08/26/2023 SIGMOIDOSCOPY 08/26/2023 VIRTUAL COLONOSCOPY 08/26/2023 INFLUENZA VACCINE (#1) 2024 COVID-19 VACCINE (2024-2 6 season) 2024 03/04/2021, 02/11/2021 SCREENING FOR DIABETES 02/06/2028 02/05/2025 SMOKING STATUS SCREENING (On ce After 26 Yrs) Completed 05/07/2023 HEPATITIS A VACCINES Aged Out No long er eligible based on patient's age to complete this topic HIB VACCINES Aged Out No longer eligi ble based on patient's age to complete this topic MENINGOCOCCAL VACCINES (ACWY) Aged Out No longer eligible based on patient's age to complete this topic MENINGOCOCCAL VACCINES (B) Aged Out N o longer eligible based on patient's age to complete this topic PNEUMOCOCCAL VACCINES (0-49 years) Aged Out No longer eligible b ased on patient's age to complete this topic Medical Devices Not on file Procedures Procedure Name Priority Date/Time Associated Diagnosis Comments XR CHEST 1 VIEW Routine 02/05/2025 2:57 PM EST D-DIMER STAT 02/05/2025 2:49 PM EST TROPONIN STAT 02/05/2025 2:49 PM EST CBC AND DIFFERENTIAL STAT 02/05/2025 1:48 PM EST TROPONIN STAT 02/05/2025 1:48 PM EST BASIC METABOLIC PANEL (BMP) STAT 02/05/2025 1:48 PM EST CBC AND DIFFERENTIAL STAT 02/05/2025 1:48 PM EST ECG 12-LEAD STAT 02/05/2025 1:38 PM EST from Last 3 Months Results * XR CHEST 1 VIEW (02/05/2025 2:57 PM EST) Anatomical Region Laterality Modality Chest Computed Radiogr aphy 02/05/2025 3:27 PM EST Impressions 02/05/2025 3:28 PM EST No acute abnormality. Narrative 02/05/2025 3:28 PM EST XR CHEST 1 VIEW Referring clinician's provided indication for this examination in Epic: Pain COMPARISON: CT ANGIO CHEST WITH AND WITHOUT CONTRAST FINDINGS: Devices/Tubes/Lines: None. Lungs: No focal consolidation or pulmonary edema. Pleura: No pleural effusion or pneumothorax. Heart/Mediastinum: Similar in appearance. Bones/Soft Tissues: No significant abnormality. Procedure Note Vani Alfaro MD - 02/05/2025 XR CHEST 1 VIEW Referring clinician's provided indication for this examination in Epic:Pain COMPARISON: CT ANGIO CHEST WITH AND WITHOUT CONTRAST FINDINGS: Devices/Tubes/Lines: None. Lungs: No focal consolidation or pulmonary edema. Pleura: No pleural effusion or pneumothorax. Heart/Mediastinum: Similar in appearance. Bones/Soft Tissues: No significant abnormality. IMPRESSION: No acute abnormality. Chandni Wilson PA-C IMG XR CHEST Final Result * D-Dimer (02/05/2025 2:49 PM EST) D-Dimer 476 <500 ng/mL FEU 02/05/2025 3:15 PM EST [facility] Comment:A negative D-dimer r esult (at a cut off of 500 ng/mL FEU) when combined with a clinical assessment of low pretest probability has been shown to have a high negative predictive value for DVT or PE. Clinical correlation is required. Blood (Blood) Venipuncture / Unknown 02/05/2025 2:49 PM EST 02/05/2025 3:01 PM EST Chandni Wilson PA-C LAB BLOOD BKR OR DERABLES Final Result [address] [address] * Troponin (02/05/2025 2:49 PM EST) Only the most recent of2 resultswithin the time period is included. Troponin-T HS Gen5 <6 0 - 9 ng/L 02/05/2025 3:24 PM EST [facility] Blood (Blood) Venipuncture / Unknown 02/05/2025 2:49 PM EST 02/05/2025 3:01 PM EST Chema Castillo MD LAB BLOOD BKR ORDERABLES Final R esult [facility] [address] [place] [address] * (ABNORMAL) CBC and Differential (02/05/2025 1:48 PM EST) WBC 7.90 4.00 - 11.00 K/uL 02/05/2025 1:53 PM [facility] RBC 4.37 4.00 - 5.20 M/uL 02/05/2025 1:53 PM [facility] Hemoglobin 12.2 12.0 - 16.0 g/dL 02/05/2025 1:53 PM [facility] Hematocrit 38.0 36.0 - 46.0 % 02/05/2025 1:53 PM [facility] MCV 87.0 80.0 - 100.0 fL 02/05/2025 1:53 PM [facility] MCH 27.9 27.0 - 31.0 pg 02/05/2025 1:53 PM [facility] MCHC 32.1 32.0 - 36.0 g/dL 02/05/2025 1:53 PM [facility] MPV 9.4 8.4 - 12.0 fL 02/05/2025 1:53 PM [facility] RDW-CV 14.5 11.5 - 14.5 % 02/05/2025 1:53 PM [facility] PLT 311 150 - 450 K/uL 02/05/2025 1:53 PM [facility] Neutrophils 49.2 % 02/05/2025 1:53 PM [facility] Lymphocytes 30.5 % 02/05/2025 1:53 PM [facility] Monocytes 8.1 % 02/05/2025 1:53 PM [facility] Eosinophils 11.5 % 02/05/2025 1:53 PM [facility] Basophils 0.4 % 02/05/2025 1:53 PM [facility] Imm Grans 0.3 % 02/05/2025 1:53 PM [facility] NRBC 0.0 <=0.0 /100 WBCs 02/05/2025 1:53 PM [facility] Absolute Neutrophils 3.89 1.92 - 7.60 K/uL 02/05/2025 1:53 PM [facility] Absolute Lymphocytes 2.41 0.72 - 4.10 K/uL 02/05/2025 1:53 PM [facility] Absolute Monocytes 0.64 0.16 - 1.10 K/uL 02/05/2025 1:53 PM [facility] Absolute Eosinophils 0.91(H) 0.00 - 0.50 K/uL 02/05/2025 1:53 PM [facility] Absolute Basophils 0.03 0.00 - 0.15 K/uL 02/05/2025 1:53 PM [facility] Absolute Imm Grans 0.02 0.00 - 0.09 K/uL 02/05/2025 1:53 PM [facility] Absolute NRBC 0.00 <=0.00 K cells/uL 02/05/2025 1:53 PM [facility] Absolute Neutrophils 3.89 1.92 - 7.60 K/uL 02/05/2025 1:53 PM [facility] Comment:Automated cell count . Manual ANC may differ if performed. Diff Type Auto 02/05/2025 1:53 PM [facility] Blood (Blood) Venipuncture / Unknown 02/05/2025 1:48 PM EST 02/05/2025 1:51 PM EST us Chema Castillo MD LAB BLOOD BKR ORDERABLES Final R esult [address] [id number] * (ABNORMAL) Basic Metabolic Panel (BMP) (02/05/2025 1:48 PM EST) Sodium 137 136 - 145 mmol/L 02/05/2025 2:15 PM [facility] Potassium 3.9 3.4 - 5.1 mmol/L 02/05/2025 2:15 PM [facility] Chloride 98 98 - 107 mmol/L 02/05/2025 2:15 PM [facility] CO2 26 20 - 31 mmol/L 02/05/2025 2:15 PM [facility] BUN 15 6 - 23 mg/dL 02/05/2025 2:15 PM [facility] Creatinine 0.60 0.50 - 1.00 mg/dL 02/05/2025 2:15 PM [facility] Glucose 112(H) 70 - 99 mg/dL 02/05/2025 2:15 PM [facility] Calcium 9.4 8.5 - 10.5 mg/dL 02/05/2025 2:15 PM [facility] eGFR 112 >59 mL/min/1.7 3m2 02/05/2025 2:15 PM [facility] Comment:Estimated glomerular filtration rate calculated using the CKD-EPI refit equation. Anion Gap 13 3 - 17 mmol/L 02/05/2025 2:15 PM [facility] Blood (Blood) Venipuncture / Unknown 02/05/2025 1:48 PM EST 02/05/2025 1:51 PM EST us Chema Castillo MD LAB BLOOD BKR ORDERABLES Final R esult [address] [address] * ECG 12-LEAD (02/05/2025 1:38 PM EST) Ventricular Rate EKG/MIN 90 BPM [facility] Atrial Rate 90 BPM [facility] CO Interval 144 ms [facility] QRS Duration 94 ms [facility] QT Interval 376 ms [facility] QTC Interval 459 ms [facility] P [place] 39 degrees [facility] R Wave [place] -6 degrees [facility] T Wave [place] 42 degrees [facility] 02/05/2025 1:38 PM EST 02/06/2025 2:21 PM EST Narrative [facility] - 02/06/2025 2:21 PM EST Normal sinus rhythm Moderate voltage criteria for LVH, may be normal variant Borderline ECG When compared with ECG of 07-May-2023 21:23, Premature ventricular complexes are no longer Present Confirmed by Joe [id number]) on 02/06/2025 2:21:15 PM us Chema Castillo MD ECG ORDERABLES Final Result [facility] from Last [address] [place] [address] [address] [address] [facility] Care Teams Marketing Administrator Relationship Specialty Start Date End Date Chasity Larson MD [facility] [address] [place], [place] [address] PCP - General Internal Medicine 06/29/22 Additional Source Comments The information contained in this document represents components of the legal health record. It is not the complete legal health record.[facility]
--- OUTSIDE RECORDS SUMMARY | 2025-02-12 15:47 | XMS_ITS | Encounter Summary ---
Author Organization [facility] Address [address] [facility] [address] [place] [phone] Phone Care Team Providers Care Fast Food Manager Name Role Phone Chasity Larson MD Primary Care Provider [phone] Encounter Details Date Type Department Care Team (Late st Contact Info) Description 05/07/2023 Procedure Pass [facility], Ct Scan - [facility] [address] [place] [address] Social History Tobacco Use Types Packs/Day Years [...] on filedocumented in this encounter Care Teams Fast Food Manager Relationship Specialty Start Date End Date Chasity Larson MD [facility] [place] [address] PCP - General Internal Medicine 06/29/22 documented as of this encounter Additional Source Comments The information contained in this document represents components of the legal health record. It is not the complete legal health record.[facility]
== END 2025-02-12 13:28 | disposition home or self-care (01) ==
LOC: HO.HMCC 11:44
PROVIDERS: PCP Internal Medicine; Visit Provider Internal Medicine
DX: Z00.01 Encounter for general adult medical examination with abnormal findings (principal); E66.01 Morbid (severe) obesity due to excess calories; Z68.38 Body mass index [BMI] 38.0-38.9, adult; I10 Essential (primary) hypertension; M54.2 Cervicalgia; M62.838 Other muscle spasm; K21.9 Gastro-esophageal reflux disease without esophagitis; E55.9 Vitamin D deficiency, unspecified